=== PATIENT | female | born 1955 | race Caucasian/White ===

== ENCOUNTER 2018-02-03 06:34 | Day surgery (SDC) | payer OTHER ==
[~2018-02-03] VITALS: Ht 152.4 cm; Wt 62.0 kg
[~2018-02-03 06:34] MED LIST: EPIP0.3I IM; Z.0.NO CURRENT MEDS
[2018-02-03] MEDS ORDERED: TRAM50TA PO (07:04)
[2018-02-03] MEDS ORDERED: LORA-392 PO (07:04)
[2018-02-03] MEDS ORDERED: SODIUM CHLORIDE 2 ML FLUSH PRN IV FLUSH (07:30)
[2018-02-03] MEDS ORDERED: DIATRIZOATE MEGLUM/DIATRIZOATE SOD 9 ML CUP PO ONE (07:30)
[2018-02-03] MEDS ORDERED: SODIUM CHLOR 0.9% 1000 ML IV SCH (07:30)
[2018-02-03 07:50] VITALS: BP 138/91; PULSE 85; RESP 18; TEMP 97.3; O2SAT 98
[2018-02-03] MEDS ORDERED: ONDANSETRON HCL 4 MG/2 ML VIAL ONE (09:00)
[2018-02-03] MEDS ORDERED: SODIUM CHLORIDE 2 ML FLUSH BID IV FLUSH SCH (09:00)
[2018-02-03] MEDS ORDERED: fentaNYL CITRATE 250 MCG/5 ML AMP ONE (09:55)
[2018-02-03] MEDS ORDERED: LORazepam 2 MG/ML VIAL ONE (09:55)
[2018-02-03 10:30] VITALS: BP 107/72; PULSE 81; RESP 20; TEMP 98.3; O2SAT 98
[2018-02-03 10:45] VITALS: BP 105/73; PULSE 75; RESP 20; O2SAT 97
[2018-02-03] MEDS ORDERED: LIDOCAINE HCL 1% 10 ML VIAL OTHER ONE (11:07)
--- NOTE | 2018-02-03 11:09 | RADRPT ---
EXAM DATE/TIME: 02/03/2018 10:04 [facility] COMPARISON: No previous studies available for comparison. INDICATIONS : Right ovarian mass. SEDATION TIME: 30 minutes BIOPSY SITE: Right MEDICATION(S): 1.) 100 mcg fentanyl (Sublimaze) IV 2.) 1 mg lorazepam (Ativan) IV DEVICE(S): 1.) 20 gauge Temno core biopsy needle MEDICAL HISTORY : None. SURGICAL HISTORY : Hysterectomy. ENCOUNTER: Initial ACUITY: 1 day PAIN SCORE: 0/10 LOCATION: Right ovarian mass A total of one core specimen(s) were obtained and sent to the laboratory for pathologic evaluation. PROCEDURE: 1. CT guided ovary biopsy. 2. Conscious sedation with continuous EKG and oximetry monitoring. 3. EKG and oximetry remained stable throughout the procedure. Prior to the procedure informed consent was obtained. Any appropriate prior imaging studies were rev iewed. Using automated exposure control and adjustment of the mA and/or kV according to patient size, radiat ion dose was kept as low as reasonably achievable to obtain optimal diagnostic quality images. DICOM format image data is available electronically for review and comparison. The site was prepped in a sterile fashion. Full sterile technique was used, including cap, mask, radha rile gloves and gown and a large sterile sheet. Hand hygiene and 2% chlorhexidine and/or betadine/al cohol prep was utilized per protocol for cutaneous antisepsis. The skin and subcutaneous tissues wer e infiltrated with local anesthetic solution. With CT guidance the previously identified target was localized. Biopsy was performed using the presc ribed needle as above. Adequate hemostasis was obtained with compression at the puncture site. Follow-up CT scan reveals no hemorrhage. The patient tolerated the procedure well and there were no complications. The patient was returned to the Radiology Outpatient Unit in stable condition. CONCLUSION: Successful CT guided core biopsy of right ovarian mass. Yeison Lui MD on February 03, 2018 at 10:49 Board Certified Radiologist. This report was verified electronically.
[2018-02-03 11:15] VITALS: BP 96/71; PULSE 69; RESP 20; O2SAT 97
[2018-02-03 11:45] VITALS: BP 94/68; PULSE 66; RESP 20; O2SAT 98
[2018-02-03 12:15] VITALS: BP 114/72; PULSE 84; RESP 20; O2SAT 95
== END 2018-02-03 12:30 | disposition home or self-care (01) ==
LOC: HRAD 06:34 → HRIP 06:42 → HRAD 12:30
PROVIDERS: ATTEND Internal Medicine
DX: N83.9 Noninflammatory disorder of ovary, fallopian tube and broad ligament, unspecified (principal)
CPT/HCPCS: 49180; 77012; 88305; 88341; 88342; 99152; 99153; J2060; J2405; J3010; J7030; Q9963

== ENCOUNTER 2018-02-10 09:36 | Day surgery (SDC) | payer OTHER ==
[~2018-02-10] VITALS: Ht 152.4 cm; Wt 62.7 kg
[~2018-02-10 09:36] MED LIST changes: -EPIP0.3I IM; +LORA-392 PO; +TRAM50TA PO; -Z.0.NO CURRENT MEDS
[2018-02-10] MEDS ORDERED: LIDOCAINE HCL 1% 10 ML VIAL OTHER ONE (09:37)
[2018-02-10 09:49] VITALS: BP 125/82; PULSE 87; RESP 20; TEMP 97.9; O2SAT 99
[2018-02-10] MEDS ORDERED: fentaNYL CITRATE 250 MCG/5 ML AMP ONE (10:26)
[2018-02-10] MEDS ORDERED: MIDAZOLAM HCL 5 MG/5 ML VIAL ONE (10:26)
[2018-02-10] MEDS ORDERED: SODIUM CHLOR 0.9% 1000 ML IV SCH (11:00)
--- NOTE | 2018-02-10 12:45 | PD.RAD ---
Post CT Procedure Prog Note Pre Procedure Diagnosis: (1) Ovarian mass, right Post Procedure Diagnosis: (1) Ovarian mass, right Procedure Date: February 10, 2018 Supervising Radiologist: Leroy Cristobal Estimated blood loss: minimal. Anesthesia: Conscious Sedation Plan of Activity Patient to Unit: [facility] Patient Condition: Good See PACS Report for procedural detail/treatment Biopsy Imaging Guidance: CT Side: Right Biopsy Procedure: Abdominal Mass, Pelvic Mass Site: 1. right retroperitoneal soft tissue mass biopsy 2. right ovarian/adnexal mass aspiration and biopsy Specimen: Core Biopsy, Fluid Fluid Description: Clear, Yellow Additional Detail: 2 separate biopsies performed. see dictated report for further details. Plan to [facility] for monitoring then discharge in 2 hours if criteria met. Leroy Cristobal MD February 10, 2018 12:45
[2018-02-10 12:55] VITALS: BP 118/78; PULSE 77; RESP 16; TEMP 98.3; O2SAT 96
[2018-02-10 13:15] VITALS: BP 130/74; PULSE 87; RESP 20; O2SAT 96
[2018-02-10 13:30] VITALS: BP 101/63; PULSE 74; RESP 20; O2SAT 95
[2018-02-10 14:00] VITALS: BP 107/73; PULSE 83; RESP 20; O2SAT 96
--- NOTE | 2018-02-10 14:19 | RADRPT ---
EXAM DATE/TIME: 02/10/2018 11:33 [facility] COMPARISON: CT NEEDLE BIOPSY PELVIC, February 10, 2018, 11:46. CT NEEDLE BIOPSY PELVIC, February 03, 2018, 10:04. INDICATIONS : Pelvic mass, intraperitoneal implants. SEDATION TIME: 60 minutes BIOPSY SITE: Right lower quadrant abdomen MEDICATION(S): 1.) 3 mg midazolam (Versed) IV 2.) 150 mcg fentanyl (Sublimaze) IV DEVICE(S): 1.) 18 gauge Temno core biopsy needle 2.) 17 gauge Apple blunt needle MEDICAL HISTORY : pelvic mass SURGICAL HISTORY : Hysterectomy. lt oophorectomy ENCOUNTER: Initial ACUITY: 1 day PAIN SCORE: 0/10 LOCATION: Right lower quadrant A total of five core specimen(s) were obtained and sent to the laboratory for pathologic evaluation. PROCEDURE: 1. CT guided right lower quadrant biopsy. 2. Conscious sedation with continuous EKG and oximetry monitoring. 3. EKG and oximetry remained stable throughout the procedure. Prior to the procedure informed consent was obtained. The only examination available for review as th e prior CT performed during biopsy. After discussion with Dr. Fleming, it is reported that there may b e additional peritoneal nodules which could be amenable to percutaneous biopsy. Therefore, we image t he entire abdomen and pelvis prior to localization. The noncontrast CT of the entire abdomen and pelv is demonstrates the following significant findings: There is a solid and cystic appearing right adnexal mass measuring 7.3 x 5.8 cm. There is a loculated appearing fluid in the inferior pelvis in the posterior cul-de-sac and left adnexa with associated m ild peritoneal thickening and possible soft tissue density. A peritoneal nodule is present in the lef t lower quadrant directly adjacent to the proximal sigmoid colon measuring 11 mm. The right adnexal p mario masses abuts the sigmoid colon and also abuts distal small bowel loops. The mass causes obstruc tion of the right kidney with severe right hydronephrosis and hydroureter. There is a retroperitoneal soft tissue nodule posterior to the ascending colon measuring 1.9 x 1.1 cm. Simple cyst is present i n the left mid kidney measuring 2.6 cm. No liver lesion is identified and no nodules are seen at the lung bases. There is an enlarged aortocaval lymph node in the inferior abdomen measuring 1 x 1.1 cm. Using automated exposure control and adjustment of the mA and/or kV according to patient size, radiat ion dose was kept as low as reasonably achievable to obtain optimal diagnostic quality images. DICOM format image data is available electronically for review and comparison. Given the above findings, I decided to proceed with biopsy of the retroperitoneal soft tissue nodule in the right abdomen as well as re biopsy of the solid and cystic right adnexal mass. The 11 mm perit ramsey nodule adjacent to the sigmoid colon is not amenable to a safe biopsy. Full sterile technique was used, including cap, mask, sterile gloves and gown and a large sterile sheet. Hand hygiene and 2 % chlorhexidine and/or betadine/alcohol prep was utilized per protocol for cutaneous antisepsis. The skin and subcutaneous tissues were infiltrated with local anesthetic solution at both locations. With CT guidance the retroperitoneal nodule was localized first. Biopsy was performed using the presc ribed needle as above. Adequate hemostasis was obtained with compression at the puncture site. Follow-up CT scan reveals no hemorrhage or acute abnormality. The patient tolerated the procedure well and there were no complications. The patient was returned to the Radiology Outpatient Unit in stable condition. CONCLUSION: 1. Full description of the abdomen and pelvis findings are described above. As described above, I de cided to perform biopsy of a retroperitoneal soft tissue nodule in the right midabdomen as well as re peat biopsy of the right adnexal mass. 2. Biopsy of the retroperitoneal mass and adnexal mass were uncomplicated. 3. The right adnexal mass is causing obstruction of the right kidney with severe right hydronephrosis and proximal hydroureter. Leroy Cristobal MD on February 10, 2018 at 14:08 Board Certified Radiologist. This report was verified electronically.
--- NOTE | 2018-02-10 14:21 | RADRPT ---
EXAM DATE/TIME: 02/10/2018 11:46 [facility] COMPARISON: CT NEEDLE BIOPSY SOFT TISSUE, February 10, 2018, 11:33. CT NEEDLE BIOPSY PELVIC, February 03, 2018, 10:04. INDICATIONS : Pelvic mass, intraperitoneal implants. SEDATION TIME: 60 minutes BIOPSY SITE: pelvis MEDICATION(S): 1.) 3 mg midazolam (Versed) IV 2.) 150 mcg fentanyl (Sublimaze) IV DEVICE(S): 1.) 18 gauge Temno core biopsy needle 2.) 17 gauge Apple blunt needle MEDICAL HISTORY : pelvic mass SURGICAL HISTORY : Hysterectomy. left oophorectomy ENCOUNTER: Initial ACUITY: 1 day PAIN SCORE: 0/10 LOCATION: pelvis A total of five core specimen(s) were obtained and sent to the laboratory for pathologic evaluation. PROCEDURE: 1. CT guided pelvic biopsy. 2. Conscious sedation with continuous EKG and oximetry monitoring. 3. EKG and oximetry remained stable throughout the procedure. Prior to the procedure informed consent was obtained. The patient's abdomen and pelvis CT was reviewe d prior to proceeding. For full description of the abdomen CT findings please refer to the other biop sy report performed today. Using automated exposure control and adjustment of the mA and/or kV according to patient size, radiat ion dose was kept as low as reasonably achievable to obtain optimal diagnostic quality images. DICOM format image data is available electronically for review and comparison. The site was prepped in a sterile fashion. Full sterile technique was used, including cap, mask, radha rile gloves and gown and a large sterile sheet. Hand hygiene and 2% chlorhexidine and/or betadine/al cohol prep was utilized per protocol for cutaneous antisepsis. The skin and subcutaneous tissues wer e infiltrated with local anesthetic solution. With CT guidance the right adnexal solid and cystic mass was localized. Prior to solid tissue biopsy, aspiration of 25 cc of clear yellow fluid was aspirated from the solid and cystic lesion. Next, biop sy was performed using an 18 gauge needle and 5 samples were obtained. Adequate hemostasis was obtai luke with compression at the puncture site. Follow-up CT scan reveals no hemorrhage or acute abnormality. The patient tolerated the procedure well and there were no complications. The patient was returned to the Radiology Outpatient Unit in stable condition. CONCLUSION: 1. Uncomplicated CT-guided biopsy and aspiration of the right pelvis/adnexal mass. 25 cc of clear yel low fluid was aspirated and sent for cytology. Additionally, solid tissue was obtained. 2. Dictated separately is description of the right retroperitoneal soft tissue nodule biopsy. Leroy Cristobal MD on February 10, 2018 at 14:17 Board Certified Radiologist. This report was verified electronically.
[2018-02-10 14:30] VITALS: BP 110/68; PULSE 85; RESP 20; O2SAT 96
== END 2018-02-10 15:00 | disposition home or self-care (01) ==
LOC: HRAD 09:36 → HRIP 09:39 → HRAD 15:00
PROVIDERS: ATTEND Obstetrics & Gynecology Gynecologic Oncology
DX: C48.1 Malignant neoplasm of specified parts of peritoneum (principal); C56.1 Malignant neoplasm of right ovary
CPT/HCPCS: 20206; 49180; 77012; 88173; 88305; 88307; 88341; 88342; 99152; 99153; J2250; J3010

== ENCOUNTER 2018-02-21 06:10 | Day surgery (SDC) | payer OTHER ==
[~2018-02-21] VITALS: Ht 152.4 cm; Wt 62.3 kg
[2018-02-21] MEDS ORDERED: ZOFR8TAB PO (06:48)
[2018-02-21] MEDS ORDERED: MULTTAB67 PO (06:48)
[2018-02-21 06:52] VITALS: BP 125/79; PULSE 84; RESP 20; TEMP 98.4; O2SAT 97
[2018-02-21] MEDS ORDERED: VANCOMYCIN 1000 MG/NS 250 ML - implanted port/tunneled catheter IV SCH ×2 (07:30)
[2018-02-21] MEDS ORDERED: SODIUM CHLORIDE 0.9% 1000 ML IV SCH (07:30)
[2018-02-21] MEDS ORDERED: CHLORHEXIDINE GLUCONATE 2 % 1 PACK (2 CLOTHS) TOPICAL SCH (07:30)
[2018-02-21] MEDS ORDERED: ceFAZolin 2 GM PREMIX 50 ML - implanted port/tunneled catheter insertion IV SCH (07:30)
[2018-02-21] MEDS ORDERED: POVIDONE IODINE 5% (ANTISEPSIS KIT) 4 APPLICATIONS EACH NARE SCH (07:30)
[2018-02-21] MEDS ORDERED: fentaNYL CITRATE 250 MCG/5 ML AMP ONE (07:37)
[2018-02-21] MEDS ORDERED: MIDAZOLAM HCL 5 MG/5 ML VIAL ONE (07:38)
[2018-02-21] MEDS ORDERED: LIDOCAINE 1%/EPINEPHrine 1:100,000 SOLN 20 ML VIAL ONE (08:08)
[2018-02-21] MEDS ORDERED: MIDAZOLAM HCL 2 MG/2 ML VIAL ONE (08:37)
[2018-02-21 09:10] VITALS: BP 112/68; PULSE 103; RESP 16; TEMP 98.2; O2SAT 93
[2018-02-21] MEDS ORDERED: SODIUM CHLORIDE 0.9% FLUSH 10 ML FLUSH IVF PRN (09:15)
--- NOTE | 2018-02-21 09:17 | PD.RAD ---
Post Procedure Progress Note Pre Procedure Diagnosis: (1) Ovarian mass, right Post Procedure Diagnosis: (1) Ovarian mass, right Procedure Date: February 21, 2018 Supervising Radiologist: Bola Daniels Proceduralist/Assist: Christina Darden, RT(R)(), Ida Loaiza RT(R) Anesthesia: Local, Analgesia, Conscious Sedation Plan of Activity Patient to Unit: [facility] Patient Condition: Good See PACS Report for procedural detail/treatment Central Venous Access Device Procedure 1 Right Internal Jugular Infusaport Placement single lumen Portuguese: 8 Bola Daniels MD February 21, 2018 09:17
[2018-02-21 09:25] VITALS: BP 108/67; PULSE 83; RESP 18; O2SAT 93
[2018-02-21 09:55] VITALS: BP 101/65; PULSE 81; RESP 18; O2SAT 98
[2018-02-21 10:25] VITALS: BP 102/65; PULSE 77; RESP 18; O2SAT 98
--- NOTE | 2018-02-21 10:53 | RADRPT ---
EXAM DATE/TIME: 02/21/2018 08:48 [facility] COMPARISON: No previous studies available for comparison. INDICATIONS : Patient with a history of a pelvic mass, needs chemotherapy. MEDICAL HISTORY : Anxiety GERD Osteoporosis Uterine Fibroids SURGICAL HISTORY : Cervical polyps Carpal tunnel release Breast implants Hysterectomy ENCOUNTER: Initial ACUITY: 2 weeks PAIN SCORE: 0/10 FLUORO TIME: 2.02 minutes IMAGE SERIES: 1 SEDATION TIME: 60 minutes ACCESS: Right internal jugular vein SEDATION: 1.) 6 mg midazolam (Versed) IV 2.) 250 mcg fentanyl (Sublimaze) IV Prophylactic antibiotics were administered with appropriate pre-procedure timing. Vancomycin within 2 hours of procedure, Ancef (or alternative) within 1 hour of procedure. DEVICE: 1. 8 Mongolian single lumen Power port PROCEDURE : 1. Continuous pulse oximetry and EKG monitoring. 2. Intravenous conscious sedation. 3. Ultrasound guidance for venous access. 4. Fluoroscopic guided implantable central venous port placement. The patient was placed supine. The neck was prepped in sterile fashion. Full sterile technique was u sed, including cap, mask, sterile gloves and gown, and a large sterile sheet. Hand hygiene and 2% ch lorhexidine Betadine was utilized per protocol for cutaneous antisepsis with appropriate dry time for site. Sterile gel and sterile probe cover were utilized for ultrasound guidance. The skin and sub cutaneous tissues were infiltrated with local anesthetic solution. Under direct ultrasound guidance, central venous access was accomplished in the targeted vessel. The ultrasound images depicting access guidance were stored and saved to PACS for permanent record. A s ubcutaneous pocket was created using blunt dissection. The port was introduced to the pocket. The c atheter tubing was fed through a subcutaneous tunnel to the venotomy site. The catheter tubing was c ut to a suitable length and then was introduced through a valved Peel-Away sheath and positioned with catheter tubing tip at the cavo-atrial junction level. The pocket incision was closed with subcutic ular Vicryl suture. Steri-Strips were applied. The port was flushed and locked with heparin solutio n per protocol. Sterile dressing was applied to the site. The patient tolerated the procedure well. Conscious sedation was performed with the prescribed dosages and duration as above in the presence of an independent trained radiology nurse to assist in the monitoring of the patient. EKG and oximetry remained stable throughout the procedure. The patient tolerated the procedure well and there were no complications. The patient was sent to post anesthesia recovery in stable condition. CONCLUSION: Uncomplicated ultrasound and fluoroscopic guided implanted central venous port catheter placement as described in detail above. An 8 Mongolian Power port was placed. Bola Daniels MD on February 21, 2018 at 10:50 Board Certified Radiologist. This report was verified electronically.
[2018-02-21 11:25] VITALS: BP 107/78; PULSE 100; RESP 18; O2SAT 98
== END 2018-02-21 11:20 | disposition home or self-care (01) ==
LOC: HROP 06:10 → HRIP 06:11 → HROP 11:20
PROVIDERS: ATTEND Obstetrics & Gynecology Gynecologic Oncology
DX: C56.1 Malignant neoplasm of right ovary (principal)
CPT/HCPCS: 36561; 76937; 77001; 99152; 99153; C1788; J0690; J1642; J2250; J3010; J3370; J7030; J7050

== ENCOUNTER 2018-06-05 05:51 | Inpatient (IN) ==
[2018-06-05] MEDS ORDERED: Heparin - SQ 10,000 UNITS/ML Vial ONE (07:12)
[2018-06-05] MEDS ORDERED: Heparin - SQ 10,000 UNITS/ML Vial SQ SCH (07:15)
[2018-06-05] MEDS ORDERED: Chlorhexidine Gluconate 2% 1 Pack (2 Cloths) TOPICAL SCH (07:15)
[2018-06-05] MEDS ORDERED: Metoprolol Tartrate 25 MG Tablet PO SCH (07:15)
[2018-06-05] MEDS: Famotidine PF Inj 20 MG/2 ML Vial ONE ×2 (07:21→14:44)
[2018-06-05] MEDS ORDERED: Sugammadex Inj 200 MG/2 ML Vial IV.PUSH ONE (07:44)
[2018-06-05] MEDS ORDERED: Sodium Chlor 0.9% Inj 500 ML IV.SIG SCH (08:00)
[2018-06-05] MEDS ORDERED: Lidocaine 1%/Epinephrine 1:100,000 Inj 50 ML Vial ONE (09:35)
[2018-06-05] MEDS ORDERED: Lidocaine PF 1% Inj 5 ML Syringe INFILTRATN ONE (12:00)
[2018-06-05] MEDS ORDERED: Ketorolac Inj 30 MG/ML (IVP) Vial IV.PUSH ONE (12:00)
[2018-06-05] MEDS ORDERED: Phenylephrine/NS 1000 MCG/10ML Syringe IV.PUSH ONE (12:00)
[2018-06-05] MEDS ORDERED: LORazepam 0.5 MG Tablet PO PRN (12:22)
[2018-06-05] MEDS ORDERED: Morphine Inj 4 MG/ML Vial ONE (12:42)
[2018-06-05] MEDS ORDERED: fentaNYL Citrate Inj 100 MCG/2 ML Ampul ONE (12:42)
[2018-06-05] MEDS ORDERED: KCL 20 mEq/D5W/NaCl 0.45% Inj 1,000 ML ONE (13:02)
[2018-06-05] MEDS: KCL 20 mEq/D5W/NaCl 0.45% Inj 1,000 ML IV.CONT SCH ×2 (13:18→20:32)
[2018-06-05] MEDS ORDERED: *morphine SULFATE 4 MG/ML PERIprocedure ONLY ONE ×2 (13:36→13:45)
[2018-06-05] MEDS: Ketorolac Inj 30 MG/ML (IVP) Vial IV.PUSH SCH (18:03)
[2018-06-06] MEDS: Ketorolac Inj 30 MG/ML (IVP) Vial IV.PUSH SCH ×3 (00:36→12:05)
[2018-06-06] MEDS: KCL 20 mEq/D5W/NaCl 0.45% Inj 1,000 ML IV.CONT SCH (04:30)
--- NOTE | 2018-06-06 07:10 | MD ---
cc: Patricia Fleming MD, [facility] DATE OF DISCHARGE: 06/06/2018 PROCEDURE: 06/05/2018, robotic-assisted laparoscopic cytoreduction of ovarian cancer with bilateral salpingo-oophorectomy, resection of pelvic tumor, omentectomy, bilateral ureterolysis, tumor resection, extensive lysis of adhesions. HOSPITAL COURSE: She did well in her early postoperative period, remained hemodynamically stable, tolerating oral intake. Oh[place] catheter removed pending voiding. Ins and outs 2680/2700. Labs are pending. PHYSICAL EXAMINATION: VITAL SIGNS: Afebrile, pulse 73, respirations 16, blood pressure 117/69, O2 saturations greater than or equal to 97%. GENERAL: Somnolent, but awake, minimally anxious. Good pain control. LUNGS: Clear. Mild basilar rales. CARDIOVASCULAR: Regular rate and rhythm. ABDOMEN: Soft. Incisions clean and dry. ASSESSMENT: Postoperative day number 1, doing well in the early postoperative period. The preliminary findings and steps taken at surgery are discussed. Activities restrictions reviewed. Questions were asked and answered. She expressed good understanding and agreed. PLAN: I anticipate she will meet criteria for discharge to home. She will resume prior medications. She will have a prescription for Percocet and our office phone number is again provided to her to contact us should she have any questions or problems and to ensure she has a followup scheduled in 2 weeks. MD LINDSEY Dowell/elle , 06:35 AM , 06:42 AM
[2018-06-06 11:37] LABS: Baso % (Auto) 0.4 % (0.0-2.0); Eos # (Auto) 0.1 th/mm3 (0.0-0.4); Eos % (Auto) 0.8 % (0.0-4.0); Hematocrit 31.4 % (35.0-46.0); Hemoglobin 10.4 gm/dL (11.6-15.3); Lymph # (Auto) 1.5 th/mm3 (1.0-4.8); Lymph % (Auto) 18.8 % (9.0-44.0); Mean Corpuscular Hemoglobin 32.1 pg (27.0-34.0); Mean Corpuscular Volume 97.2 fL (80.0-100.0); Mean Platelet Volume 8.4 fL (7.0-11.0); Mono # (Auto) 0.7 th/mm3 (0.0-0.9); Mono % (Auto) 8.5 % (0.0-8.0); Neut # (Auto) 5.6 th/mm3 (1.8-7.7); Neut % (Auto) 71.5 % (16.0-70.0); Platelet Count 155 th/mm3 (150-450); Red Blood Count 3.23 mil/mm3 (4.00-5.30); Red Cell Distribution Width 17.9 % (11.6-17.2); White Blood Count 7.8 th/mm3 (4.0-11.0)
[2018-06-06 11:54] VITALS: BP 115/68; PULSE 77; RESP 20; TEMP 98.5; O2SAT 98
[2018-06-06 11:59] LABS: Carbon Dioxide 26.2 meq/L (21.0-32.0); Potassium 3.6 meq/L (3.5-5.1)
--- NOTE | 2018-06-14 09:15 | MP ---
cc: Patricia Fleming MD, Staci DATE OF OPERATION: 06/05/2018 PREOPERATIVE DIAGNOSES: 1. Ovarian cancer, stage IIIC, bilaterally. 2. Status post neoadjuvant Taxol/carboplatin chemotherapy. POSTOPERATIVE DIAGNOSES: 1. Ovarian cancer, stage IIIC, bilaterally. 2. Status post neoadjuvant Taxol/carboplatin chemotherapy. 3. Extensive pelvic adhesions. PROCEDURES PERFORMED: Robotic-assisted laparoscopic aggressive cytoreduction of ovarian cancer with en bloc omentectomy, bilateral salpingo-oophorectomy, resection of pelvic and intraperitoneal tumor, bilateral ureterolysis, extensive lysis of adhesions. SURGEON: Patricia Fleming MD. 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 ANESTHESIA: General endotracheal anesthesia. ESTIMATED BLOOD LOSS: 300 mL. INTRAVENOUS FLUIDS: 1100 mL. URINE OUTPUT: 150 mL. HISTORY: This is a 63-year-old female with intraperitoneal carcinomatosis, ascites, elevated CA-125, biopsy-proven papillary serous carcinoma with findings consistent with stage IIIC bilateral disease. She was treated with neoadjuvant Taxol and carboplatin chemotherapy with resolution of the ascites, and significant clinical and biochemical response to treatment. Physical exam showed objective improvement in the disease status, although there was clearly still palpable disease present. She was counseled regarding the potential value of surgical intervention. She was seen again in the preoperative holding area with her family, and findings were again reviewed. Plan of care was discussed. Questions were asked and answered. She expressed good understanding, and was in favor of moving forward with surgical management. FINDINGS: Upon entry into the peritoneal cavity, there was notable response to chemotherapy in the abdomen. There was minimal to absent disease at most. There were small miliary, small implants infrequent, no larger than approximately 2 mm showing response to chemotherapy. Along the transverse colon, the proximal omentum grossly appeared free of disease. In the pelvis; however, distal omentum was fixed in the pelvis, where it was obscuring visible access to the pelvic structures. Eventually, found that the distal omentum had significant tumor still present and it was fixed in the pelvis, and was part of the pelvic tumor arising from the ovaries bilaterally. There were peritoneal nodules in the mesentery, and on the small and large bowel, and there were extensive adhesions with fixation from tumor throughout the pelvis. At the conclusion of the case, the vast majority of tumor had been satisfactorily reduced. Remaining were only implants, 3 mm or less on the bowel wall, and a thin, small plaque of tumor on a looped small bowel, and a thin, small plaque of tumor on the rectum that were not thought safely or necessarily amenable to surgical resection. There was no area to suggest impending obstruction, and it was felt that chemotherapy would be best to address the small volume of residual disease. STATEMENT OF COMPLEXITY/MODIFIER: The complexity of this case was significantly increased due to the extensive pelvic adhesions, all directly or indirectly related to the tumor. It was estimated that at least 90 minutes or more of the surgical time was spent lysing adhesions, trying to reestablish normal anatomy, gain safe access to the pelvis to accomplish surgical objectives. Modifier should be applied accordingly. DESCRIPTION OF PROCEDURE: She was taken to the operating room and placed in dorsal lithotomy position, after general endotracheal anesthesia was administered. A timeout was undertaken. She was identified by site recognition, hospital ID bracelet, and the proposed procedure was reviewed and confirmed. She was carefully positioned in padded Pj stirrups. Her arms were padded and secured to the sides. She was further secured to the operating table with egg crate padding and tape in a crossover shoulder fashion. All sites noted to be properly aligned with no malalignment or pressure points. She was prepped in sterile fashion and draped below the waist, placed in lithotomy position. Ohara catheter placed in the bladder. The uterus and cervix were surgically absent, consistent with her history. Change with sterile gloves was undertaken. We completed draping in anticipation of laparoscopy, confirmed that an orogastric tube was in the stomach on suction. With manual elevation of the abdominal wall and direct laparoscopic visualization, a 5 mm cannula was placed in the left upper quadrant, and safe intraperitoneal entry was confirmed. Carbon dioxide gas was insufflated into the peritoneal cavity. Then, 8 mm cannulas were placed in the right upper quadrant and left lateral quadrant, and the 12 mm cannula was placed in the midline above the umbilicus. The anatomy was surveyed with findings as described above. Peritoneal washings were obtained for cytology. She was placed in Trendelenburg position. The pelvic anatomy was evaluated to the extent possible with the omentum and tumor overlying and fixing the pelvic structures. Visualization was difficult. The small bowel was folded back on its mesenteric root to the extent possible below the omentum, and 3 Ray-John sponges were placed in the peritoneal cavity. Robotic system brought in and attached in the usual fashion. Monopolar scissors, fenestrated bipolar forceps, and ProGrasp manipulators were placed in arms #1, #2, and #3 respectively, and I took my place at the surgeon's console. Omentectomy was performed by detaching the skin throughout the colic omentum from the transverse colon. Nonvascular attachments were taken down with sharp dissection. Vascular attachments were isolated, cauterized with bipolar cautery, and transected starting near the hepatic flexure, and continuing dissection along the border of the transverse colon, and continuing toward the splenic flexure until the majority of the infracolic omentum had been detached. The omentum could now be elevated, and dissection was carried out to free adhesions to further free the omentum from the attachments to underlying structures. Neither of the ovaries were yet visible, as the loops of small bowel were fixed in the pelvis. Retroperitoneal dissection was initiated on the right side. The residual round ligament was identified, isolated, cauterized, and transected. Dissection was carried out above the pelvic brim, which was necessary to identify the ureter, and then loops of small bowel and colon were freed from the medial aspect of the mass. Sharp dissection was used to help free the ureter from along the posterolateral aspect of the mass, enough until the infundibulopelvic ligament could be isolated, and the intervening peritoneum was opened. The infundibulopelvic ligament was further isolated, cauterized, and transected. Additional ureterolysis was carried out along the course in the pelvis to free the ureter from its attachment to the mass, as the adhesions were freed, slowly elevating the mass, and freeing it from the surrounding structures with the mass being tumor that had replaced the right tube and ovary. After the ureter was freed along its course, further dissection allowed isolation of the residual right uteroovarian ligament, which was cauterized and transected, thereby freeing the right-sided tumor. This was dissected free from the omental tumor. It was placed in the right pericolic gutter for later retrieval. Attention was directed toward dissection on the left side. Left retroperitoneal dissection was carried out. Extensive lysis of adhesions was required to mobilize the colon from its fixation to the left pelvic sidewall, and retroperitoneal dissection was carried to the pelvic brim to identify the ureter. The ureter was freed along its course in the proximal pelvis until the infundibulopelvic ligament could be isolated. The intervening peritoneum was opened, and the infundibulopelvic ligament was further isolated, cauterized, and transected. The rectosigmoid colon was freed from the mass with sharp dissection and the mass was freed from its attachments through the vaginal cuff and bladder with sharp dissection, which gave some mobility. With further mobility, it could be elevated, and the ureter was further dissected free from the posterolateral attachments to the tumor with sharp dissection, freeing the ureter along its course in the pelvis. Circumferential dissection of the tumor allowed it to be further elevated until the left residual round ligament, and left residual utero-ovarian ligament was isolated, cauterized, and transected, freeing the left-sided tumor attached with the omental tumor. Now, the left ovarian tumor was sharply dissected, from the omental tumor to help facilitate subsequent specimen delivery. The specimens were placed in the right pericolic gutter for later retrieval. Inspection and running of the bowel revealed other implants along the mesentery, which were sharply removed. This was carried out until all significant tumor had been resected. Any remaining implants or small thin plaques were right on the bowel wall itself, and it was felt that morbidity of multifocal small-bowel obstruction exceeded any potential benefit, as it was very small volume of tumor, and no evidence of impending obstruction or other compromise. The pelvis and abdomen were thoroughly irrigated. Small bleeders were made hemostatic with bipolar cautery. Hemostatic Surgicel was placed in the dissection bed against the pelvic sidewalls, and cul-de-sac posteriorly and laterally, and it was felt that all reasonable surgical objectives had been completed. The integrity of the bladder and bowel was confirmed by careful visual inspection and assessment. The robotic instruments were removed. The robotic system was disengaged from the operative field. I reentered the bedside under sterile condition. The 12 mm fascial defect was extended a bit with sharp dissection to facilitate specimen delivery. Each of the 3 Ray-John sponges that were placed, were now removed individually. They were inspected and noted to be removed in their entirety. A 15 cm EndoCatch bag and cannula were introduced. The omentum and omental tumor were placed in the bag, brought to the abdominal wall, and the countertraction using ring forceps and sharp dissection. Specimen was delivered. Another 15 cm EndoCatch bag was used to capture the right and left ovarian tumors and the peritoneal tumor implants that were resected. They were all placed in the specimen bag, brought to the abdominal wall, and removed. Visual inspection confirmed that all specimens were removed. All sites were satisfactorily hemostatic. There were no remaining foreign objects in the peritoneal cavity. Preliminary counts were correct, and attention was directed toward closing. The midline fascial defect was closed with interrupted 0 Vicryl sutures using a needle fascial closure apparatus. They were tied securely, were trimmed at the fascia, completely airtight, and hemostatic. The remaining cannulas were withdrawn. Carbon dioxide gas was removed from the peritoneal cavity. 3-0 Vicryl subcutaneous and 3-0 Vicryl subcuticular sutures were used to close these incisions. She was placed in lithotomy position. Pelvic exam confirmed there were no remaining foreign objects in the vagina. Preliminary and final counts were correct. She was returned to dorsal supine position, and was pending reversal of anesthesia, when I left the operating room to precede her to the postanesthesia care unit. MD LINDSEY Dowell/rh , 08:00 AM , 08:25 AM
== END 2018-06-06 16:35 | disposition home or self-care (01) ==
LOC: HSDI 05:51 → HCIN 14:20
PROVIDERS: ADMIT Obstetrics & Gynecology Gynecologic Oncology; ATTEND Obstetrics & Gynecology Gynecologic Oncology

== ENCOUNTER 2018-09-27 20:50 | Inpatient (IN) ==
[2018-09-28] MEDS ORDERED: Acetaminophen 325 MG Tablet PO PRN (02:31)
[2018-09-28] MEDS ORDERED: Bisacodyl 10 MG Supp RECTAL PRN (02:31)
--- NOTE | 2018-09-28 02:40 | P.HPIM ---
History of Present Illness Service: [facility] Primary Care Physician: Rhona Stewart Chief Complaint: abdominal pain History of Present Illness: 63 y/o female with a history of ovarian cancer presented to the ED with complaints of abdominal pain, nausea and vomiting for 2 days. She recently had a hysterectomy and is on chemotherapy, last chemo was 3 weeks ago. She currently sees Dr. Fleming. She states the pain is an intermittent, 7/10, cramping with nausea and vomiting, no radiation, worse with eating, better with rest. She denies any diarrhea. She states she did have a low grade temp of 100 at home. Denies any chest pain or sob. Review of Systems Review of Systems: all other systems reviewed are negative PMFSH History History Provided By: Patient Medical History Medical History Anxiety (Acute) Breast implant status (Acute) Carpal tunnel syndrome of right wrist (Acute) Fibroid, uterine (Acute) GERD (gastroesophageal reflux disease) (Acute) H/O pelvic mass (Acute) Osteoporosis (Acute) Surgical History Surgical History H/O: hysterectomy (Acute) Family History Family History Other No history of cancer Social History Social History Substance History: No History of Abuse Second Hand Smoke Exposure: No Smoking Status: Never smoker How Often Do You Have a Drink Containing Alcohol: Never Recent Travel in [facility] within the Last 8 Weeks: No Recent Out of Country Travel within the Last 8 Weeks: No Medications and Allergies Allergies Allergy/AdvReac Type Severity Reaction Status Date / Time fire ant Allergy Mild Anaphylaxis Verified 08/30/18 09:26 Home Medications Medication Instructions Recorded Confirmed Type ascorbic acid (vitamin C) [Vitamin 250 mg PO DAILY 06/05/18 08/30/18 History C] calcium carbonate [Calcium 500] 1,000 mg PO DAILY 06/05/18 08/30/18 History lorazepam [Ativan] 0.5 mg PO DAILY 06/05/18 08/30/18 History [id number] 1 tab PO DAILY 06/05/18 08/30/18 History [[employer]] sodium chloride 0.9 % 1,000 ml IV QWEEK 07/05/18 08/30/18 History Active Medications: Active Medications Acetaminophen (Tylenol) 650 mg PO Q4H PRN PRN Reason: Temp > 100.4 Al Hydroxide/Mg Hydroxide (Milk Of Magnesia Liq) 30 ml PO Q12H PRN PRN Reason: Mild Constipation Bisacodyl (Dulcolax Supp) 10 mg RECTAL DAILY PRN PRN Reason: SEVERE CONSITIPATION Sodium Chloride (Ns Inj) 1,000 mls @ 100 mls/hr IV.CONT .Q10H LUCHO Lactulose (Lactulose Liq) 30 ml PO DAILY PRN PRN Reason: SEVERE CONSITIPATION Ondansetron HCl (Zofran Inj) 4 mg IV.PUSH Q6H PRN PRN Reason: NAUSEA OR VOMITING Sennosides (Senokot) 17.2 mg PO Q12H PRN PRN Reason: Moderate Constipation Sodium Chloride (Ns Flush) 2 ml IV.FLUSH BID LUCHO Sodium Chloride (Ns Flush) 2 ml IV.FLUSH PRN PRN PRN Reason: FLUSH AFTER USING IV ACCESS Physical Exam Vital signs: Intake & Output 09/25/18 09/26/18 09/27/18 09/28/18 06:59 06:59 06:59 06:59 Weight 53.977 kg Narrative: GENERAL: well nourished patient laying in bed, no distress SKIN: Warm and dry. HEAD: Normocephalic. EYES: No scleral icterus. No injection or drainage. NECK: Supple, trachea midline. No JVD or lymphadenopathy. CARDIOVASCULAR: Regular rate and rhythm without murmurs, gallops, or rubs. RESPIRATORY: Breath sounds equal bilaterally. No accessory muscle use. GASTROINTESTINAL: Abdomen soft, epigastric and LLQ tenderness, nondistended. MUSCULOSKELETAL: No cyanosis, or edema. Caprini VTE Risk Assessment Caprini VTE Risk Assessment: Moderate/High Risk (score >= 2) Caprini Risk Assessment Model: Point Value = 1 Point Value = 2 Point Value = 3 Point Value = 5 Age 41-60 Minor surgery BMI > 25 kg/m2 Swollen legs Varicose veins or History of unexplained or recurrent spontaneous Oral contraceptives or hormone replacement Sepsis (< 1 month) Serious lung disease, including pneumonia (< 1 month) Abnormal pulmonary function Acute myocardial infarction Congestive heart failure (< 1 month) History of inflammatory bowel disease Medical patient at bed rest Age 61-74 Arthroscopic surgery Major open surgery (> 45 min) Laparoscopic surgery (> 45 min) Malignancy Confined to bed (> 72 hours) Immobilizing plaster cast Central venous access Age >= 75 History of VTE Family history of VTE Factor V Leiden Prothrombin [id number] Lupus anticoagulant Anticardiolipin antibodies Elevated serum homocysteine Heparin-induced thrombocytopenia Other congenital or acquired thrombophilia Stroke (< 1 month) Elective arthroplasty Hip, pelvis, or leg fracture Acute spinal cord injury (< 1 month) Prophylaxis Regimen: Total Risk Factor Score Risk Level Prophylaxis Regimen 0-1 Low Early ambulation 2 Moderate Order ONE of the following: *Sequential Compression Device (SCD) *Heparin 5000 units SQ BID 3-4 Higher Order ONE of the following medications: *Heparin 5000 units SQ TID *Enoxaparin/Lovenox 40 mg SQ daily (WT < 150 kg, CrCl > 30 mL/min) *Enoxaparin/Lovenox 30 mg SQ daily (WT < 150 kg, CrCl > 10-29 mL/min) *Enoxaparin/Lovenox 30 mg SQ BID (WT < 150 kg, CrCl > 30 mL/min) AND/OR *Sequential Compression Device (SCD) 5 or more Highest Order ONE of the following medications: *Heparin 5000 units SQ TID (Preferred with Epidurals) *Enoxaparin/Lovenox 40 mg SQ daily (WT < 150 kg, CrCl > 30 mL/min) *Enoxaparin/Lovenox 30 mg SQ daily (WT < 150 kg, CrCl > 10-29 mL/min) *Enoxaparin/Lovenox 30 mg SQ BID (WT < 150 kg, CrCl > 30 mL/min) AND *Sequential Compression Device (SCD) Assessment and Plan Plan 63 y/o female with a history of ovarian cancer presented to the ED with complaints of abdominal pain, nausea and vomiting for 2 days. Acute abdominal pain, Partial sbo vs ileitis vs abscess Abdominal CT reviewed and shows a possible partial sbo with fluid collection -Consult gen surgery for evaluation and recommendations -IVF for hydration -Antiemetics as needed -Flagly IV -NPO -Place NGT if patient has vomiting -Pain management with IV morphine Ovarian cancer, currently on chemo -Will consult [facility] oncology if needed DVT prophylaxis: SCDs H&P: Quality VTE Deep Vein Thrombosis/Pulmonary Embolism Present on Admission: No
[2018-09-28] MEDS ORDERED: Morphine Inj 4 MG/ML Vial IV.PUSH PRN (03:21)
[2018-09-28] MEDS: Sod Chloride 0.9% Inj 1,000 ML IV.CONT SCH ×2 (04:09→13:53)
[2018-09-28 07:22] LABS: Baso % (Auto) 0.1 % (0.0-2.0); Eos % (Auto) 0.2 % (0.0-4.0); Hematocrit 24.6 % (35.0-46.0); Hemoglobin 8.3 gm/dL (11.6-15.3); Lymph # (Auto) 1.2 th/mm3 (1.0-4.8); Lymph % (Auto) 21.7 % (9.0-44.0); Mean Corpuscular HGB Conc 33.6 % (32.0-36.0); Mean Corpuscular Hemoglobin 32.6 pg (27.0-34.0); Mean Platelet Volume 8.4 fL (7.0-11.0); Mono # (Auto) 0.6 th/mm3 (0.0-0.9); Neut # (Auto) 3.8 th/mm3 (1.8-7.7); Platelet Count 170 th/mm3 (150-450); Red Blood Count 2.54 mil/mm3 (4.00-5.30); Red Cell Distribution Width 20.6 % (11.6-17.2); White Blood Count 5.7 th/mm3 (4.0-11.0)
[2018-09-28 07:41] LABS: Anion Gap 9 meq/L (5-15); Blood Urea Nitrogen 11 mg/dL (7-18); Calcium 8.2 mg/dL (8.5-10.1); Carbon Dioxide 23.5 meq/L (21.0-32.0); Chloride 108 meq/L (98-107); Glomerular Filtration Rate Greater Than 89 mL/min (>89); Glucose,Random 94 mg/dL (74-106); Potassium 3.7 meq/L (3.5-5.1); Sodium 140 meq/L (136-145)
--- NOTE | 2018-09-28 13:39 | P.CONGS ---
[facility] Gen Surgery Consult Note Consult date: 09/28/18 Reason for consult: other (PSBO) Requesting physician: Nayla Patel Narrative: This is a 63 year old female with a past medical history of ovarian cancer treated by Dr. Fleming. The patient reports her last dose of chemotherapy was three weeks ago. She reports abdominal pain with associated nausea that began about three days ago. She has not had any emsis. No other family member is sick. A CT abdomen/pelvis was done on admission which shows possible thickening of the terminal lumen and a prominent amount of debris in the colon. Her WBC is normal. Her last BM was yesterday and it was normal. The patient and her state that she is scheduled for a biopsy with Dr. Fleming tomorrow. A General Surgery consultation has been requested. Review of Systems All other systems reviewed negative except as stated in [facility] PMF[facility] - History History Provided By: Patient - Medical History Medical History: Medical History (Last Reviewed 09/28/18 @ 13:38 by DOLORES Casillas) Anxiety Breast implant status Carpal tunnel syndrome of right wrist Fibroid, uterine GERD (gastroesophageal reflux disease) H/O pelvic mass Osteoporosis - Surgical History Surgical History: Surgical History (Last Reviewed 09/28/18 @ 13:38 by DOLORES Casillas) H/O: hysterectomy - Family History Family History: Family History (Last Reviewed 09/28/18 @ 03:17 by DOLORES Lopez) Other No history of cancer - Tobacco History Second Hand Smoke Exposure: No Smoking Status: Never smoker - Alcohol History How Often Do You Have a Drink Containing Alcohol: Never - Substance Use History Substance History: No History of Abuse - Travel History Recent Travel in the [place] Within the Last 8 Weeks: No Recent Travel Out of the Country Within the Last 8 Weeks: No Medications and Allergies Allergies Allergy/AdvReac Type Severity Reaction Status Date / Time fire ant Allergy Mild Anaphylaxis Verified 08/30/18 09:26 Home Medications Medication Instructions Recorded Confirmed Type ascorbic acid (vitamin C) [Vitamin 250 mg PO DAILY 06/05/18 08/30/18 History C] calcium carbonate [Calcium 500] 1,000 mg PO DAILY 06/05/18 08/30/18 History lorazepam [Ativan] 0.5 mg PO DAILY 06/05/18 08/30/18 History [id number] 1 tab PO DAILY 06/05/18 08/30/18 History [[employer]] sodium chloride 0.9 % 1,000 ml IV QWEEK 07/05/18 08/30/18 History Active Medications: Active Medications Acetaminophen (Tylenol) 650 mg PO Q4H PRN PRN Reason: Temp > 100.4 Al Hydroxide/Mg Hydroxide (Milk Of Magnesia Liq) 30 ml PO Q12H PRN PRN Reason: Mild Constipation Bisacodyl (Dulcolax Supp) 10 mg RECTAL DAILY PRN PRN Reason: SEVERE CONSITIPATION Sodium Chloride (Ns Inj) 1,000 mls @ 100 mls/hr IV.CONT .Q10H [facility] Last Admin: 09/28/18 04:09 Dose: 100 mls/hr Metronidazole/Sodium Chloride (Flagyl 500 Mg Inj) 100 mls @ 100 mls/hr IV.SIG Q6H [facility] Last Infusion: 09/28/18 07:19 Dose: Infused Lactulose (Lactulose Liq) 30 ml PO DAILY PRN PRN Reason: SEVERE CONSITIPATION Morphine Sulfate (Morphine Inj) 2 mg IV.PUSH Q3H PRN PRN Reason: pain 1 - 10 Ondansetron HCl (Zofran Inj) 4 mg IV.PUSH Q6H PRN PRN Reason: NAUSEA OR VOMITING Oxycodone/Acetaminophen (Percocet 5/325 Mg) 1 tab PO Q6H PRN PRN Reason: PAIN SCALE 4 TO 6 MODERATE Last Admin: 09/28/18 08:27 Dose: 1 tab Sennosides (Senokot) 17.2 mg PO Q12H PRN PRN Reason: Moderate Constipation Sodium Chloride (Ns Flush) 2 ml IV.FLUSH BID [facility] Sodium Chloride (Ns Flush) 2 ml IV.FLUSH PRN PRN PRN Reason: FLUSH AFTER USING IV ACCESS Exam Vital signs: Vital Signs 09/28/18 04:00 09/28/18 07:46 09/28/18 11:58 Temperature 99.3 F 98.8 F 99.0 F Pulse Rate 80 89 83 Respiratory Rate 16 16 16 Blood Pressure 108/55 L 124/67 105/53 L Pulse Oximetry 97 98 92 L Intake & Output 09/27/18 09/28/18 09/28/18 18:59 06:59 18:59 Intake Total 100 / 100 Balance 100 / 100 Weight 53.977 kg Intake: IV 100 / 100 Flagyl 500 MG Inj 100 ML @ 100 100 / 100 mls/hr IV.SIG Q6H [facility] Rx#: [id number] Other: Date of Last Bowel Movement 09/27/18 Weight On Admission 53.977 kg Narrative: GENERAL: Very pleasant 63 year old female resting in bed. is at the bedside. SKIN: Warm and dry. HEAD: Atraumatic. Normocephalic. EYES: Pupils equal and round. No scleral icterus. No injection or drainage. ENT: No nasal bleeding or discharge. Mucous membranes pink and moist. NECK: Trachea midline. CARDIOVASCULAR: Regular rate and rhythm. RESPIRATORY: No accessory muscle use. Clear to auscultation. Breath sounds equal bilaterally. GASTROINTESTINAL: Abdomen soft, nondistended. Tender throughout. Faint laparoscopic scars. MUSCULOSKELETAL: Extremities without clubbing, cyanosis, or edema. No obvious deformities. NEUROLOGICAL: Awake and alert. No obvious cranial nerve deficits. Motor grossly within normal limits. Five out of 5 muscle strength in the arms and legs. Normal speech. PSYCHIATRIC: Appropriate mood and affect; insight and judgment normal. - Routine Abdominal Exam Present: soft Comments: No distension Results - Labs 09/29/18 04:58 09/29/18 04:58 Laboratory Results - last 24 hr 09/28/18 09/28/18 06:55 06:55 WBC 5.7 RBC 2.54 L Hgb 8.3 L Hct 24.6 L MCV 97.0 MCH 32.6 MCHC 33.6 RDW 20.6 H D Plt Count 170 MPV 8.4 Neut % (Auto) 67.0 Lymph % (Auto) 21.7 Caswell % (Auto) 11.0 H Eos % (Auto) 0.2 Baso % (Auto) 0.1 Neut # (Auto) 3.8 Lymph # (Auto) 1.2 Caswell # (Auto) 0.6 Eos # (Auto) 0.0 Baso # (Auto) 0.0 WBC Differential . Differential Comment Auto diff final Sodium 140 Potassium 3.7 Chloride 108 H Carbon Dioxide 23.5 Anion Gap 9 BUN 11 Creatinine 0.56 Estimated GFR Greater than 89 Random Glucose 94 Calcium 8.2 L - Imaging CT scan - abdomen: report reviewed, image reviewed Assessment and Plan - Assessment (1) Partial small bowel obstruction Code(s): K56.600 - Partial intestinal obstruction, unspecified as to cause Status: Acute Plan: 63 year old female with ovarian cancer; PSBO -Will give tap water enema today -NPO -IVF -NGT to LIWS if vomiting occurs -Dr. Duran to discuss with Dr. Fleming -Thank you for this consult; We will continue to follow Discussed with Dr. Fleming; reviewed the CT Doubt any obstruction, but will observe and place NG if she has any emesis. The exam, history, and the medical decision-making described in the above note were completed with the assistance of the mid-level provider. I reviewed and agree with the findings presented. I attest that I had a [id number] encounter with the patient on the same day, and personally performed and documented my assessment and findings in the medical record. - Plan Discussed Condition With: Dr. Roger BERNAL RN Nas Deven Dsouza and at the bedside
--- NOTE | 2018-09-28 15:39 | P.PNIM ---
Subjective Interval history: 63-year-old female with history of ovarian cancer presented with nausea vomiting abdominal pain was found to have partial small bowel obstruction with fluid collection, patient was scheduled for outpatient biopsy tomorrow. Patient seen and examined, still having abdominal pain, some nausea, denies shortness of breath, no chest pain, positive diarrhea Physical Exam Vital signs: Last Vital Signs Temp 99.0 F 09/28/18 11:58 Pulse 83 09/28/18 11:58 Resp 16 09/28/18 11:58 BP 105/53 L 09/28/18 11:58 Pulse Ox 92 L 09/28/18 11:58 Intake & Output 09/26/18 09/27/18 09/28/18 09/29/18 06:59 06:59 06:59 06:59 Intake Total 1200 / 1200 Balance 1200 / 1200 Weight 53.977 kg Ill-appearing 63-year-old female who is awake alert Heart S1-S2 regular Lungs clear bilateral decreased breath sounds Abdomen soft nondistended moderate tender epigastric left lower Extremities no clubbing cyanosis no calf tenderness Results Labs CBC & Chem 7: 09/28/18 06:55 09/28/18 06:55 Imaging Imaging: CT scan abdomen and pelvis CONCLUSION:1. Induration the right lower quadrant was questionable thickening of the terminal ileum and a prominent amount of debris seen in the distal colon is concerning for some degree of obstruction. Inflammatory change of the ilium/ enteritis could be considered. Significant dilatation of the small bowel is not seen however. This inflammatory change appears to involve some cystic change or fluid in the right paracolic gutter region.2. Bilobed cystic area seen in the cul-de-sac. This could be related to a right adnexal mass. The patient had a smaller right adnexal mass seen on the prior study. If the patient has not had surgery, the mass has enlarged. If the patient has had surgery, the cystic area could represent seromas. Assessment and Plan (1) Partial small bowel obstruction: Code(s): K56.600 - Partial intestinal obstruction, unspecified as to cause Status: Acute Plan PSBO - npo, ivf, correct electrolytes, ngt if nv persists, appreciate sx eval ILIEITIS - cont empiric iv abx OVARIAN CA s/p recent chemo and hysterectomy w R pelvic paracolic gutter fluid collection - per surgical consult ANEMIA nc prob chronic and related to chemo, monitor hh, no active bleeding noted dvt prophylaxis - heparin sq disposition - home when clinically stable chel diet, Progress Note: Quality VTE Deep Vein Thrombosis/Pulmonary Embolism Present on Admission: No
[2018-09-28] MEDS ORDERED: Heparin - SQ 10,000 UNITS/ML Vial SQ SCH (21:00)
[2018-09-28] MEDS ORDERED: Polyethylene Glycol 3350 17 GM Packet PO ONE (21:10)
--- NOTE | 2018-09-28 22:29 | MB ---
cc: Naye Camacho MD DATE: 09/28/2018 REFERRING PHYSICIAN: DOLORES Casillas HISTORY OF PRESENT ILLNESS: DOLORES Casillas requests a consultation for Mrs. Deven Dsouza regarding history of a gynecologic malignancy, admitted with partial small-bowel obstruction. HISTORY OF PRESENT ILLNESS: Mrs. Deven Dsouza is a 63-year-old woman, well known patient to Dr. Patricia Fleming. She has a history of high-grade serous carcinoma/ovarian cancer. She received neoadjuvant chemotherapy and cytoreductive surgery on 06/05/2018. She had residual disease with some moderate response identified to neoadjuvant chemotherapy. She is receiving adjuvant systemic chemotherapy and has tolerated it quite well. She had her last cycle of chemotherapy about 3 to 4 weeks ago. She is recovering from the chemo-related toxicity. Her white count and platelet count have recovered. She remains mildly anemic. She presented to the emergency room on 09/27/2018 at [facility] with abdominal pain, nausea and vomiting since yesterday. Imaging study was performed. CT scan of the abdomen and pelvis shows induration of the right lower quadrant with questionable thickening of the terminal ileum. There is a prominent amount of debris in the distal colon concerning for obstruction. Inflammatory change of the ileum and enteritis is considered. For this reason, she was transferred to [facility] and admitted. Mrs. Deven Dsouza is unhappy about her stay in the emergency room. She feels that no one has come to see her. She has moved her bowels twice with an enema. She has not had any vomiting. She is hungry and eager to eat. She denies any chest pain or shortness of breath. She denies any sick contact. No headaches. No urinary complaints. She was having right lower quadrant pain. Another concern is the fact that she is scheduled for a CT-guided biopsy of a residual right adnexal mass seen on CT PET scan 08/03/2018. They are scheduled for that tomorrow. She is eager to proceed with that evaluation. She has done extremely well with her chemotherapy postoperatively. She is looking to review this finding. The CT scan from 09/27/2018 confirmed a bilobed cystic area seen in the cul-de-sac. This is thought to be a right adnexal mass. A seroma is considered. PAST MEDICAL HISTORY: Anxiety, gastroesophageal reflux disease, osteoporosis or ovarian cancer. PAST SURGICAL HISTORY: Debulking surgery, carpal tunnel surgery, breast implants FAMILY HISTORY: No family history of cancer. SOCIAL HISTORY: Denies any tobacco, alcohol or illicit drug use. She is and lives with her . ALLERGIES: NO KNOWN DRUG ALLERGIES. MEDICATIONS: 1. Acetaminophen p.r.n. 2. Milk of magnesia p.r.n. 3. Dulcolax p.r.n. 4. Unfractionated heparin. 5. Lactulose. 6. Lorazepam. 7. Flagyl. 8. Morphine. 9. Zofran. 10. Percocet. 11. Piperacillin. 12. Tazobactam. 13. MiraLax. 14. Senokot. PHYSICAL EXAMINATION: VITAL SIGNS: Temperature 98.6, heart rate 76, respiratory rate 16, blood pressure 126/60, and saturation 97%. GENERAL: Mrs. Deven Dsouza is a well-developed woman, who looks her stated age. She has alopecia. She has some pallor. HEENT: Her pupils are round, reactive to light and accommodation. Oropharynx is clear. NECK: Supple. LUNGS: Clear. CARDIOVASCULAR: Reveals normal rate and rhythm. ABDOMEN: Soft, some tenderness in the left lower quadrant, benign. No guarding or rebound. LOWER EXTREMITIES: No edema. LABORATORY DATA: Significant for a normocytic anemia with hemoglobin of 8.3, white blood cell count are normal. Chemistry shows normal liver functions normal renal function. Lactic acid is normal. Last CA-125 was 33.3 on 09/19/2018. ASSESSMENT AND PLAN: Mrs. Deven Dsouza is a 63-year-old woman, well known patient to Dr. Patricia Fleming. Dr. Fleming is away and I am covering. She appears to have recovered from hematologic toxicity associated with the last cycle of chemotherapy. Her white count is normal. Her platelet count is normal. No specific therapy is required for the chemotherapy-induced anemia. I anticipate that this would continue to improve. She had her last cycle 3 or 4 weeks ago. We discussed the CT PET scan results showing the right adnexal mass. Dr. Fleming had intended to biopsy this lesion and was scheduled for tomorrow. We will coordinate the biopsy of this through interventional radiology tomorrow. The case was discussed with Dr. Duran who finds no contraindication to this procedure. She seems to be resolving the small bowel obstruction on her own. She had some bowel movement after her enema. She will be given some MiraLax, which is the laxative of her choice. She has some stool in the colon. Hopefully, this would continue to initiate bowel movement. Etiology of the abdominal pain needs to be elucidated. From Dr. Fleming' evaluation and recommendation, a biopsy of the adnexal mass was recommended. We will proceed with this as planned. The unfractionated heparin for DVT prophylaxis will be placed on hold. She is supported with IV fluid hydration. A multivitamin will be added to her D5 normal saline. She is quite anxious and missed her dose of lorazepam yesterday. A dose of lorazepam is administered stat. Lorazepam is offered on a p.r.n. basis from here on. The [facility] charge was called. The patient should probably be transferred to the oncology floor. She is one of our patients and may have toxicity post treatment with chemotherapy. We will monitor her closely. No objection from Dr. Duran for this transfer. Lastly, we will coordinate a KUB in the morning to see her response with the enema, lactulose. We will monitor response from the enema, bowel rest and MiraLax. Anticipate that the abdominal pain and discomfort would improve. She will followup with Dr. Fleming, the result of the adnexal mass biopsy. Pathology would be available to her at a later time. MD GAY Ribera/wayne , 09:29 PM , 09:49 PM
[2018-09-28] MEDS ORDERED: NACL 0.9% IV.CONT SCH (23:00)
[2018-09-28] MEDS ORDERED: MULTIVITAMIN IV.CONT SCH (23:00)
[2018-09-28] MEDS ORDERED: DEXTROSE IV.CONT SCH (23:00)
[2018-09-29 05:39] LABS: INR 1.1 Ratio; Prothrombin Time 11.6 sec (9.8-11.6)
[2018-09-29 05:40] LABS: Baso % (Auto) 0.1 % (0.0-2.0); Eos % (Auto) 0.4 % (0.0-4.0); Hematocrit 26.1 % (35.0-46.0); Lymph # (Auto) 1.6 th/mm3 (1.0-4.8); Lymph % (Auto) 25.6 % (9.0-44.0); Mean Corpuscular HGB Conc 34.4 % (32.0-36.0); Mean Corpuscular Hemoglobin 33.2 pg (27.0-34.0); Mean Corpuscular Volume 96.6 fL (80.0-100.0); Mean Platelet Volume 8.2 fL (7.0-11.0); Mono # (Auto) 0.7 th/mm3 (0.0-0.9); Mono % (Auto) 11.7 % (0.0-8.0); Neut # (Auto) 3.9 th/mm3 (1.8-7.7); Neut % (Auto) 62.2 % (16.0-70.0); Platelet Count 214 th/mm3 (150-450); Red Cell Distribution Width 20.8 % (11.6-17.2); White Blood Count 6.2 th/mm3 (4.0-11.0)
[2018-09-29 05:57] LABS: Anion Gap 7 meq/L (5-15); Blood Urea Nitrogen 11 mg/dL (7-18); Calcium 8.2 mg/dL (8.5-10.1); Carbon Dioxide 23.9 meq/L (21.0-32.0); Chloride 110 meq/L (98-107); Glomerular Filtration Rate Greater Than 89 mL/min (>89); Glucose,Random 88 mg/dL (74-106); Potassium 3.4 meq/L (3.5-5.1); Sodium 141 meq/L (136-145)
[2018-09-29 05:58] LABS: % Iron Saturation 11.7 % (20-50); Iron 26 mcg/dL (50-170); Total Iron Binding Capacity 223 mcg/dL (250-450)
[2018-09-29] MEDS ORDERED: Lidocaine 1%/Epinephrine 1:100,000 Inj 50 ML Vial ONE (09:04)
[2018-09-29] MEDS ORDERED: fentaNYL Citrate Inj 250 MCG/5 ML Ampul ONE (09:10)
--- NOTE | 2018-09-29 09:44 | XR ---
EXAM DATE: 09/29/2018 9:33 AM EST AGE/SEX: 63 years / Female INDICATIONS: Abdominal pain, evaluate obstruction. CLINICAL DATA: This is the patient's subsequent encounter. Patient reports that signs and symptoms h ave been present for 3 days and indicates a pain score of 2/10. MEDICAL/SURGICAL HISTORY: Carcinoma, ovarian. Gastroesophageal reflux disease. Osteoporosis. Chemotherapy Hysterectomy. infusaport COMPARISON: [facility], CT ABDOMEN & PELVIS W/O CONTRAST, 09/27/2018. . FINDINGS: The abdominal bowel gas pattern is normal. No abnormal masses, calcifications, or organomegaly is s een. The osseous structures are unremarkable. Surgical clips are noted within the right lower quadra nt CONCLUSION: No bowel obstruction or ileus. Electronically signed by: Yeison Lui MD Board Certified Radiologist 09/29/2018 9:42 AM EST
--- NOTE | 2018-09-29 10:31 | P.PNGS ---
Subjective Interval history: Patient feeling better today at bedside Physical Exam Vital signs: Vital Signs 09/28/18 11:58 09/28/18 16:00 09/28/18 20:00 Temperature 99.0 F 99.0 F 98.6 F Pulse Rate 83 81 76 Respiratory Rate 16 16 16 Blood Pressure 105/53 L 118/56 L 126/60 Pulse Oximetry 92 L 99 97 09/28/18 22:45 09/29/18 04:40 09/29/18 08:00 Temperature 99.2 F 99.8 F H Pulse Rate 90 85 92 H Respiratory Rate 18 16 16 Blood Pressure 112/70 115/67 110/63 Pulse Oximetry 96 96 97 Intake & Output 09/28/18 09/29/18 09/29/18 18:59 06:59 18:59 Intake Total 1200 / 1200 1200 / 1200 100 / 100 Balance 1200 / 1200 1200 / 1200 100 / 100 Weight 53.9 kg Intake: IV 1200 / 1200 1200 / 1200 100 / 100 NS Inj 1,000 ML @ 100 mls/hr IV 1000 / 1000 1000 / 1000 .CONT .Q10H [facility] Rx#:[id number] Flagyl 500 MG Inj 100 ML @ 100 200 / 200 200 / 200 100 / 100 mls/hr IV.SIG Q6H [facility] Rx#: [id number] Other: # Voids 2 Date of Last Bowel Movement 09/28/18 Narrative: Alert and awake Abd: soft; very minimally tender to palpation Results - Labs 09/29/18 04:58 09/29/18 04:58 Laboratory Results - last 24 hr 09/29/18 09/29/18 09/29/18 04:58 04:58 04:58 WBC 6.2 RBC 2.70 L Hgb 9.0 L Hct 26.1 L MCV 96.6 MCH 33.2 MCHC 34.4 RDW 20.8 H Plt Count 214 MPV 8.2 Neut % (Auto) 62.2 Lymph % (Auto) 25.6 Jennings % (Auto) 11.7 H Eos % (Auto) 0.4 Baso % (Auto) 0.1 Neut # (Auto) 3.9 Lymph # (Auto) 1.6 Jennings # (Auto) 0.7 Eos # (Auto) 0.0 Baso # (Auto) 0.0 WBC Differential . Differential Comment Auto diff final PT 11.6 INR 1.1 Sodium 141 Potassium 3.4 L Chloride 110 H Carbon Dioxide 23.9 Anion Gap 7 BUN 11 Creatinine 0.59 Estimated GFR Greater than 89 Random Glucose 88 Calcium 8.2 L Iron 26 L TIBC 223 L % Saturation 11.7 L - Imaging Imaging: ITS Impressions Abdomen X-Ray 09/29/18 00:00 CONCLUSION: No bowel obstruction or ileus. Assessment and Plan - Assessment (1) Partial small bowel obstruction Code(s): K56.600 - Partial intestinal obstruction, unspecified as to cause Status: Acute Plan: 63 year old female with ovarian cancer; PSBO -+BM after tap water enema -Abdominal exam benign -Patient is scheduled for CT guided biopsy this morning---she needs to remain NPO for that--okay to start clear liquids after and advance diet as tolerated -KUB reviewed--- no obstruction seen -Discussed with patient, and RN Rubin -GS will sign off; Please call with any questions Abdomen benign; tolerating diet No problems with biopsy Will see as needed. I attest that I had a [id number] encounter with the patient on the same day, and personally performed and documented my assessment and findings in the medical record. The exam, history, and the medical decision-making described in the above note were completed with the assistance of the mid-level provider. I reviewed and agree with the findings presented. I attest that I had a [id number]-[id number] encounter with the patient on the same day, and personally performed and documented my assessment and findings in the medical record.
--- NOTE | 2018-09-29 10:52 | P.RAD ---
Post Procedure Progress Note - Post Procedure Diagnosis (1) Ovarian cancer - Procedure Information Procedure Date: 09/29/18 Supervising Radiologist: Bola Daniels MD Estimated blood loss (mL): 1 Anesthesia: Local, Analgesia, Conscious Sedation - Plan of Activity Patient to Unit: ROPU Patient Condition: Good See PACS Report for procedural detail/treatment. Drainage Procedure CT left Aspiration Placement Fluid Description: Clear, Yellow Findings: Aspirated bilobed fluid collection in pelvis. Problem post-op seroma by appearance. 60 cc sent to lab
--- NOTE | 2018-09-29 14:17 | CT ---
EXAM DATE: 09/29/2018 12:39 PM EST AGE/SEX: 63 years / Female INDICATIONS: Pelvic cyst. CLINICAL DATA: This is the patient's initial encounter. Patient reports that signs and symptoms have been present for 1 day and indicates a pain score of 0/10. MEDICAL/SURGICAL HISTORY: Carcinoma, ovarian. None. COMPARISON: No prior exams available for comparison. BIOPSY SITE: pelvic cyst MEDICATION(S): 2.5mg midazolam (Versed) IV 200mcg fentanyl (Sublimaze) IV DEVICE(S): 17 gauge Introducer FLUID: Total volume of 60 of clear, yellow fluid was removed. Fluid was sent to lab for ordered studies.. . . PROCEDURE : CT guided drainage of the pelvic cyst. The risks, benefits and alternatives to the procedure were explained and verbal and written consent w as obtained. Using automated exposure control and adjustment of the mA and/or kV according to patient size, radiation dose was kept as low as reasonably achievable to obtain optimal diagnostic quality i mages. The site was prepped in sterile fashion. Full sterile technique was used, including cap, ma sk, sterile gloves and gown and a large sterile sheet. Hand hygiene and 2% chlorhexidine and/or beta dine/alcohol prep was utilized per protocol for cutaneous antisepsis. The skin and subcutaneous tiss ues were infiltrated with local anesthetic solution. DICOM format image data is available electronic ally for review and comparison. Using CT guidance the prescribed site was localized. Using blunt needle, the 17-gauge introducer was advanced of the presumed cystic collection. Position was confirmed with CT. The needle was then adva nced into the collection. A total of 60 cc of clear yellow fluid was aspirated. The last 3 cc was blo dyan in the appearance was most characteristic of a postoperative seroma. The patient tolerated the procedure well and there were no complications. The patient tolerated the procedure well and there were no complications. The patient was sent to post anesthesia recovery in s table condition. CONCLUSION: 1. Uncomplicated CT guided drainage. Probable postoperative seroma. 60 cc was sent to the laboratory for cytology as well as Gram stain Electronically signed by: Bola Daniels MD Board Certified Radiologist 09/29/2018 2:15 PM EST
--- NOTE | 2018-09-29 17:35 | P.PNIM ---
Subjective Interval history: Patient says she is feeling much better. Denies any chest pain or shortness of breath. Denies abdominal pain. Feels like going home. Physical Exam Vital signs: Vital Signs 09/28/18 20:00 09/28/18 22:45 09/29/18 04:40 Temperature 98.6 F 99.2 F 99.8 F H Pulse Rate 76 90 85 Respiratory Rate 16 18 16 Blood Pressure 126/60 112/70 115/67 Pulse Oximetry 97 96 96 09/29/18 08:00 09/29/18 12:02 09/29/18 16:00 Temperature 98.6 F 98.5 F Pulse Rate 92 H 73 81 Respiratory Rate 16 16 16 Blood Pressure 110/63 99/55 L 97/64 L Pulse Oximetry 97 99 99 Intake & Output 09/28/18 09/29/18 09/29/18 18:59 06:59 18:59 Intake Total 1200 / 1200 1200 / 1200 1201 / 1201 Balance 1200 / 1200 1200 / 1200 1201 / 1201 Weight 53.9 kg Intake: IV 1200 / 1200 1200 / 1200 1201 / 1201 MVI-12 Inj 1 ML In D5W/Normal 1001 / 1001 Saline Inj 1,000 ML @ 84 mls/hr IV.CONT .[id number] [facility] Rx#: [id number] NS Inj 1,000 ML @ 100 mls/hr IV 1000 / 1000 1000 / 1000 .CONT .Q10H [facility] Rx#:[id number] Flagyl 500 MG Inj 100 ML @ 100 200 / 200 200 / 200 200 / 200 mls/hr IV.SIG Q6H [facility] Rx#: [id number] Other: # Voids 2 Date of Last Bowel Movement 09/28/18 09/29/18 Narrative: GENERAL: Patient lying in bed. Appears comfortable. at bedside. SKIN: Warm and dry. HEAD: Normocephalic. EYES: No scleral icterus. No injection or drainage. NECK: Supple, trachea midline. No JVD. CARDIOVASCULAR: Regular rate and rhythm without murmurs, gallops, or rubs. RESPIRATORY: Breath sounds equal bilaterally. No accessory muscle use. GASTROINTESTINAL: Abdomen soft, non-tender, nondistended. Positive bowel sounds. MUSCULOSKELETAL: No cyanosis, or edema. BACK: Nontender without obvious deformity. No CVA tenderness. Results - Labs CBC & Chem 7: 09/29/18 04:58 09/29/18 04:58 Laboratory Results - last 24 hr 09/29/18 09/29/18 09/29/18 04:58 04:58 04:58 WBC 6.2 RBC 2.70 L Hgb 9.0 L Hct 26.1 L MCV 96.6 MCH 33.2 MCHC 34.4 RDW 20.8 H Plt Count 214 MPV 8.2 Neut % (Auto) 62.2 Lymph % (Auto) 25.6 [place] % (Auto) 11.7 H Eos % (Auto) 0.4 Baso % (Auto) 0.1 Neut # (Auto) 3.9 Lymph # (Auto) 1.6 [place] # (Auto) 0.7 Eos # (Auto) 0.0 Baso # (Auto) 0.0 WBC Differential . Differential Comment Auto diff final PT 11.6 INR 1.1 Sodium 141 Potassium 3.4 L Chloride 110 H Carbon Dioxide 23.9 Anion Gap 7 BUN 11 Creatinine 0.59 Estimated GFR Greater than 89 Random Glucose 88 Calcium 8.2 L Iron 26 L TIBC 223 L % Saturation 11.7 L Microbiology 09/29/18 11:00 Fluid - Other Gram Stain - Final - Imaging Impressions Abdomen X-Ray 09/29/18 00:00 CONCLUSION: No bowel obstruction or ileus. Needle Aspiration CT 09/29/18 00:00 CONCLUSION: 1. Uncomplicated CT guided drainage. Probable postoperative seroma. 60 cc was sent to the laboratory for cytology as well as Gram stain Assessment and Plan - Assessment (1) Partial small bowel obstruction Code(s): K56.600 - Partial intestinal obstruction, unspecified as to cause Status: Acute - Plan //PSBO - npo, ivf, correct electrolytes, ngt if nv persists, appreciate sx eval = Resolved. Appreciate general surgery assistance. Discussed with Dr. Camacho. There was some inflammation on CT, however this is likely secondary to constipation. No signs of infection. No need for continued antibiotics as no signs of infection. //ILIEITIS - cont empiric iv abx //OVARIAN CA s/p recent chemo and hysterectomy w R pelvic paracolic gutter fluid collection - per surgical consult = Biopsy. Gram stain does not appear to be infection. Patient advised to follow-up with oncology as outpatient for final pathology results.. //ANEMIA nc prob chronic and related to chemo, monitor hh, no active bleeding noted. Follow-up with oncology as outpatient. Hemoglobin stable. No signs of bleeding. //dvt prophylaxis - heparin sq Discussed Condition With: Patient, nurse, at bedside, Dr. Camacho, general surgery. Discharge Planning: Discharge home. Follow-up with oncology as outpatient.
[2018-09-29] MEDS ORDERED: *Heparin Central Flush 100 UNIT/ML 3 ML Syringe Periprocedural ONLY IV.FLUSH ONE (19:00)
== END 2018-09-29 18:59 | disposition home or self-care (01) ==
LOC: NEDDLT 09-28 01:25 → NEPGCP 09-28 01:35 → INTOOBSV 09-28 01:35 → HCIN 09-28 22:35
PROVIDERS: ADMIT Internal Medicine; ATTEND Internal Medicine

== ENCOUNTER 2018-11-25 21:01 | Observation (INO) ==
[2018-11-25] MEDS ORDERED: Sod Chloride 0.9% Inj 1,000 ML IV.SIG ONE (21:49)
--- NOTE | 2018-11-25 22:21 | CT ---
EXAM DATE: 11/25/2018 10:06 PM EST AGE/SEX: 63 years / Female INDICATIONS: Abdominal pain; possible bowel obstruction. CLINICAL DATA: This is the patient's initial encounter. Patient reports that signs and symptoms have been present for 1 day and indicates a pain score of 8/10. MEDICAL/SURGICAL HISTORY: Carcinoma, ovarian. Osteoporosis. bowel obstruction Breast augmenta tion. Colon resection. Hysterectomy. RADIATION DOSE: 6.64 CTDI (mGy) COMPARISON: [place], CT ABDOMEN & PELVIS W CONTRAST, 10/07/2018. . TECHNIQUE: Multiple contiguous axial images were obtained through the abdomen. Images were obtained using multiple row detector helical technique. Using automated exposure control and adjustment of the mA and/or kV according to patient size, radiation dose was kept as low as reasonably achievable to o btain optimal diagnostic quality images. DICOM format image data is available electronically for rev iew and comparison. FINDINGS: Exam is compared with October 07. There is a history of ovarian carcinoma and colonic resection. Sta ple line is noted in the rectum and in the right lower quadrant. There is some loculated fluid in the deep posterior pelvis measuring up to 5.9 x 2.8 cm in diameter which I believe is outside of bowel. There is mural thickening of distal colon proximal to suture line may indicate a mild colitis. Lung bases are clear except minimal dependent atelectasis. Previous breast augmentation. No acute fin dings in the liver, spleen, adrenals, kidneys or pancreas. Stable left renal cyst. There is no eviden ce for small bowel obstruction. CONCLUSION: 1. No bowel obstruction identified. There is some mural thickening of the distal colon that may kemar saundra a mild colitis. 2. Loculated fluid collection near the previous surgical site in the rectum measuring up to 5.9 x 2. 8 cm. This appears to be outside of bowel and does contain some air. Cannot exclude infection. Electronically signed by: Bijan Sim MD Board Certified Radiologist 11/25/2018 10:20 PM EST
[2018-11-25 22:48] LABS: Baso % (Auto) 0.5 % (0.0-2.0); Eos % (Auto) 0.4 % (0.0-4.0); Hematocrit 27.9 % (35.0-46.0); Hemoglobin 9.6 gm/dL (11.6-15.3); Lymph % (Auto) 14.4 % (9.0-44.0); Mean Corpuscular HGB Conc 34.4 % (32.0-36.0); Mean Corpuscular Hemoglobin 29.7 pg (27.0-34.0); Mean Corpuscular Volume 86.4 fL (80.0-100.0); Mean Platelet Volume 7.4 fL (7.0-11.0); Mono # (Auto) 0.2 th/mm3 (0.0-0.9); Mono % (Auto) 3.7 % (0.0-8.0); Neut # (Auto) 5.4 th/mm3 (1.8-7.7); Platelet Count 434 th/mm3 (150-450); Red Blood Count 3.23 mil/mm3 (4.00-5.30); Red Cell Distribution Width 17.9 % (11.6-17.2); White Blood Count 6.6 th/mm3 (4.0-11.0)
[2018-11-25 23:04] LABS: Bacteria,Urine Occasional /hpf; Bilirubin,Urine Negative (Negative); Calcium Oxalate Crystals,Urine Occasional /hpf; Clarity,Urine Turbid (Clear); Color,Urine Amber (Yellw/Straw); Glucose,Urine (UA) Negative (Negative); Leukocyte Esterase,Urine Large (Negative); Mucus,Urine Many /lpf (Occasional); Nitrite,Urine Negative (Negative); Specific Gravity,Urine 1.028 (1.002-1.035); Squamous Epithelial Cell,Urine 7 /hpf (0-5)
[2018-11-25 23:05] LABS: Alanine Aminotransferase 11 U/L (10-53); Albumin 2.8 g/dL (3.4-5.0); Anion Gap 8 meq/L (5-15); Aspartate Aminotransferase 10 U/L (15-37); Blood Urea Nitrogen 17 mg/dL (7-18); Calcium 8.4 mg/dL (8.5-10.1); Carbon Dioxide 27.5 meq/L (21.0-32.0); Chloride 106 meq/L (98-107); Glomerular Filtration Rate Greater Than 89 mL/min (>89); Glucose,Random 110 mg/dL (74-106); Lipase 349 U/L (73-393); Potassium 3.2 meq/L (3.5-5.1); Sodium 141 meq/L (136-145)
[2018-11-25 23:07] LABS: Alkaline Phosphatase 71 U/L (45-117); Total Protein 6.9 g/dL (6.4-8.2)
[2018-11-25] MEDS ORDERED: Potassium Chloride 25 MEQ Effervescent Tablet PO ONE (23:19)
--- NOTE | 2018-11-25 23:30 | ED ---
HPI General Chief Complaint: Abdominal Pain Stated Complaint: states poss bowel obstruction Time Seen by Provider: 11/25/18 21:11 Source: patient and family () Mode of arrival: ambulatory Limitations: no limitations History of Present Illness HPI narrative: 63-year-old female came to the emergency room brought in by her with history of abdominal discomfort and intractable vomiting. Patient says that she has history of stage III ovarian cancer and had a colon surgery done by Dr. Hastings 4 weeks back. She has history of past small bowel obstruction. She was doing fine up until this morning when she woke up in felt bloated. She did not have any bowel movement or pass gas and from the afternoon started vomiting. The says the vomiting is mostly mucus coming out but she is unable to tolerate anything by mouth. Whenever she eats or drinks tends to come out immediately. Dr. Hastings was contacted and she was recommended to come to the emergency room. Vital signs are stable. The abdominal discomfort is all over the abdomen. No aggravating or relieving symptoms identified. No radiation. says that patient took a Dulcolax suppository which made her have a small amount of bowel movement but did not relieve her symptoms. Related Data Home Medications Medication Instructions Recorded Confirmed ascorbic acid (vitamin C) [Vitamin 250 mg PO DAILY 06/05/18 11/05/18 C] [id number] 1 tab PO DAILY 06/05/18 11/05/18 [[employer]] lorazepam [Ativan] 0.5 mg PO HS 10/08/18 11/05/18 cholecalciferol (vitamin D3) 2,000 unit PO DAILY 10/24/18 11/05/18 [Vitamin D3] vitamin B complex [B-Complex] 1 tab PO DAILY 10/24/18 11/05/18 Previous Rx's Medication Instructions Recorded megestrol 400 mg PO DAILY 30 Days #300 ml 11/08/18 polyethylene glycol 3350 [Miralax] 17 g PO DAILY 30 Days each 11/08/18 Allergies Allergy/AdvReac Type Severity Reaction Status Date / Time fire ant Allergy Mild Anaphylaxis Verified 10/30/18 12:14 Review of Systems ROS: all other systems reviewed are negative [facility] Medical History Medical History Anxiety (Acute) Breast implant status (Acute) Carpal tunnel syndrome of right wrist (Acute) Fibroid, uterine (Acute) GERD (gastroesophageal reflux disease) (Acute) H/O pelvic mass (Acute) Hx of intestinal obstruction (Acute) Hx of ovarian cancer (Acute) Osteoporosis (Acute) Port-A-Cath in place (Acute) Surgical History Surgical History H/O: hysterectomy (Acute) History of carpal tunnel release of both wrists (Acute) History of intestinal surgery (Acute) Family History Family History Other No history of cancer Social History Social History Substance History: No History of Abuse Second Hand Smoke Exposure: No Smoking Status: Never smoker How Often Do You Have a Drink Containing Alcohol: Never Recent Travel in [facility] within the Last 8 Weeks: No Recent Out of Country Travel within the Last 8 Weeks: No Immunization History Tetanus Immunization: <5 Years Exam Narrative Exam Narrative: GENERAL: Awake, alert, flat affect, mild distress SKIN: Focused skin assessment warm/dry. HEAD: Atraumatic. Normocephalic. EYES: Pupils equal and round. No scleral icterus. No injection or drainage. ENT: No nasal bleeding or discharge. Mucous membranes pink and moist. NECK: Trachea midline. No JVD. CARDIOVASCULAR: Regular rate and rhythm. No murmur appreciated. RESPIRATORY: No accessory muscle use. Clear to auscultation. Breath sounds equal bilaterally. GASTROINTESTINAL: Abdomen soft, non-tender, nondistended. Hepatic and splenic margins not palpable. MUSCULOSKELETAL: No obvious deformities. No clubbing. No cyanosis. No edema. NEUROLOGICAL: Awake and alert. No obvious cranial nerve deficits. Motor grossly within normal limits. Normal speech. PSYCHIATRIC: Flat affect; insight and judgment normal. Course Initial Documented Vital Signs Temperature 98.2 F 11/25/18 21:05 Pulse Rate 94 H 11/25/18 21:05 Respiratory Rate 18 11/25/18 21:05 Blood Pressure 128/60 11/25/18 21:05 Pulse Oximetry 100 11/25/18 21:05 Last Documented Vital Signs Temperature 98.2 F 11/27/18 12:00 Pulse Rate 87 11/27/18 12:00 Respiratory Rate 16 11/27/18 12:00 Blood Pressure 113/65 11/27/18 12:00 Pulse Oximetry 100 11/27/18 12:00 Medical Decision Making MDM Narrative Medical decision making narrative: 11:29 PM based on the CAT scan report I discussed with Dr. Hastings who is on-call tonight. As per her these are postop changes. She does not think there is anything surgical but patient should be admitted and she will see the patient tomorrow morning. The low potassium was treated with p.o. replacement. Awaiting for the hospitalist to call back for admission. Patient was given 1 L of IV fluid bolus and Zofran. Medical Screen Exam Complete: Yes Emergency Medical Condition: Yes Lab Data Result diagrams: 11/26/18 08:38 11/26/18 08:38 Lab Results 11/25/18 11/25/18 11/25/18 Range/Units 22:20 22:20 22:20 WBC 6.6 (4.0-11.0) th/mm3 RBC 3.23 L (4.00-5.30) mil/mm3 Hgb 9.6 L (11.6-15.3) gm/dL Hct 27.9 L (35.0-46.0) % MCV 86.4 (80.0-100.0) fL MCH 29.7 (27.0-34.0) pg MCHC 34.4 (32.0-36.0) % RDW 17.9 H (11.6-17.2) % Plt Count 434 D (150-450) th/mm3 MPV 7.4 (7.0-11.0) fL Neut % (Auto) 81.0 H (16.0-70.0) % Lymph % (Auto) 14.4 (9.0-44.0) % [place] % (Auto) 3.7 (0.0-8.0) % Eos % (Auto) 0.4 (0.0-4.0) % Baso % (Auto) 0.5 (0.0-2.0) % Neut # (Auto) 5.4 (1.8-7.7) th/mm3 Lymph # (Auto) 1.0 (1.0-4.8) th/mm3 [place] # (Auto) 0.2 (0.0-0.9) th/mm3 Eos # (Auto) 0.0 (0.0-0.4) th/mm3 Baso # (Auto) 0.0 (0.0-0.2) th/mm3 WBC Differential . Differential Comment Auto diff final Sodium 141 (136-145) meq/L Potassium 3.2 L (3.5-5.1) meq/L Chloride 106 (98-107) meq/L Carbon Dioxide 27.5 (21.0-32.0) meq/L Anion Gap 8 (5-15) meq/L BUN 17 (7-18) mg/dL Creatinine 0.61 (0.50-1.00) mg/dL Estimated GFR Greater than 89 (>89) mL/min Random Glucose 110 H (74-106) mg/dL Calcium 8.4 L (8.5-10.1) mg/dL Magnesium 2.0 (1.5-2.5) mg/dL Total Bilirubin 0.2 (0.2-1.0) mg/dL AST 10 L (15-37) U/L ALT 11 (10-53) U/L Alkaline Phosphatase 71 (45-117) U/L Total Protein 6.9 (6.4-8.2) g/dL Albumin 2.8 L (3.4-5.0) g/dL Lipase 349 (73-393) U/L Urine Color Cece (Yellw/Straw) Urine Clarity Turbid H (Clear) Urine pH 5.0 (5.0-8.5) Ur Specific [place] 1.028 (1.002-1.035) Urine Protein 30 H (Neg-Trace) mg/dL Urine Glucose (UA) Negative (Negative) mg/dL Urine Ketones 20 (Negative) mg/dL Urine Occult Blood Negative (Negative) Urine Nitrate Negative (Negative) Urine Bilirubin Negative (Negative) Urine Urobilinogen Less than 2 (Less than 2) mg/dL Ur Leukocyte Esterase Large H (Negative) Urine RBC 31 H (0-3) /hpf Urine WBC (0-5) /hpf Urine WBC Clumps Many H (None) Ur Squamous Epith Cells 7 (0-5) /hpf Calcium Oxalate Crystal Occasional H (None) /hpf Urine Bacteria Occasional H (None) /hpf Urine Mucus Many H (Occasional) /lpf Micro UA Comment Culture indicated Ur Microscopic Review Not Reportable Urine Culture Comments Culture indicated 11/26/18 11/26/18 Range/Units 08:38 08:38 WBC 5.8 (4.0-11.0) th/mm3 RBC 3.04 L (4.00-5.30) mil/mm3 Hgb 8.7 L (11.6-15.3) gm/dL Hct 26.4 L (35.0-46.0) % MCV 86.9 (80.0-100.0) fL MCH 28.7 (27.0-34.0) pg MCHC 33.1 (32.0-36.0) % RDW 18.0 H (11.6-17.2) % Plt Count 393 (150-450) th/mm3 MPV 7.4 (7.0-11.0) fL Neut % (Auto) 72.9 H (16.0-70.0) % Lymph % (Auto) 19.7 (9.0-44.0) % [place] % (Auto) 5.0 (0.0-8.0) % Eos % (Auto) 2.0 (0.0-4.0) % Baso % (Auto) 0.4 (0.0-2.0) % Neut # (Auto) 4.2 (1.8-7.7) th/mm3 Lymph # (Auto) 1.1 (1.0-4.8) th/mm3 [place] # (Auto) 0.3 (0.0-0.9) th/mm3 Eos # (Auto) 0.1 (0.0-0.4) th/mm3 Baso # (Auto) 0.0 (0.0-0.2) th/mm3 WBC Differential . Differential Comment Auto diff final Sodium 142 (136-145) meq/L Potassium 3.6 (3.5-5.1) meq/L Chloride 108 H (98-107) meq/L Carbon Dioxide 26.5 (21.0-32.0) meq/L Anion Gap 8 (5-15) meq/L BUN 15 (7-18) mg/dL Creatinine 0.67 (0.50-1.00) mg/dL Estimated GFR 89 (>89) mL/min Random Glucose 96 (74-106) mg/dL Calcium 8.3 L (8.5-10.1) mg/dL Magnesium (1.5-2.5) mg/dL Total Bilirubin 0.2 (0.2-1.0) mg/dL AST 12 L (15-37) U/L ALT 11 (10-53) U/L Alkaline Phosphatase 64 (45-117) U/L Total Protein 6.4 (6.4-8.2) g/dL Albumin 2.6 L (3.4-5.0) g/dL Lipase (73-393) U/L Urine Color (Yellw/Straw) Urine Clarity (Clear) Urine pH (5.0-8.5) Ur Specific [place] (1.002-1.035) Urine Protein (Neg-Trace) mg/dL Urine Glucose (UA) (Negative) mg/dL Urine Ketones (Negative) mg/dL Urine Occult Blood (Negative) Urine Nitrate (Negative) Urine Bilirubin (Negative) Urine Urobilinogen (Less than 2) mg/dL Ur Leukocyte Esterase (Negative) Urine RBC (0-3) /hpf Urine WBC (0-5) /hpf Urine WBC Clumps (None) Ur Squamous Epith Cells (0-5) /hpf Calcium Oxalate Crystal (None) /hpf Urine Bacteria (None) /hpf Urine Mucus (Occasional) /lpf Micro UA Comment Ur Microscopic Review Urine Culture Comments Imaging Data Radiologist's impression: Abdomen/Pelvis CT 11/25/18 21:49 CONCLUSION: 1. No bowel obstruction identified. There is some mural thickening of the distal colon that may indicate a mild colitis. 2. Loculated fluid collection near the previous surgical site in the rectum measuring up to 5.9 x 2.8 cm. This appears to be outside of bowel and does contain some air. Cannot exclude infection. Discharge Plan Discharge Disposition Patient Disposition: ED Admit(ED Internal Use Only) Discharge Condition Condition: Stable Discharge Order Discharge Orders: Discharge Order (Routine); Ordered 11/27/18 Ordered By: Suzanne Christian ED Use Only Admit Order (Routine); Ordered 11/25/18 Ordered By: Birgit Burgess Discharge Details Anticipated Discharge Date: 11/27/18 Physicians Team ED Provider: Birgit Burgess Primary Care Provider: Rhona Stewart Attending Provider: Suzanne Christian Other Providers: [facility],Insurance ; Mary Hastings Status ED Status: Left Department Discharge Information Discharge Date/Time: 11/26/18 01:57
[2018-11-25] MEDS ORDERED: Morphine Sulfate Inj 2 MG/ML Vial IV.PUSH PRN (23:37)
[2018-11-25] MEDS ORDERED: Acetaminophen 325 MG Tablet PO PRN (23:37)
[2018-11-25] MEDS ORDERED: Bisacodyl 10 MG Supp RECTAL PRN (23:37)
--- NOTE | 2018-11-25 23:41 | P.HPIM ---
History of Present Illness Primary Care Physician: Rhona Stewart History of Present Illness: This is a 63-year-old female with a PMH of SBO and Stage 3 Ovarian CA s/p Sigmoid Resection and Tumor Debulking 10/30/[address] Hastings and Dr. Fleming who presented to the ER w/ c/o abdominal pain in addition to nausea/vomiting. States she had been doing well since discharge on 11/08/18 until this morning when she developed acute onset abdominal pain. Pain is generalized, constant, 10/10, non-radiating. Notes small BM today but was concerned for recurrent bowel obstruction, using OTC Dulcolax and suppository w / no relief. On arrival, BP 128/60, HR 94, O2 sat 100% on RA, Afebrile. CBC at baseline. K+ 3.2. UA positive for UTI. CT Abdomen/Pelvis with no bowel obstruction, small mural thickening of distal colon possibly mild colitis, loculated fluid collection near surgical site. ER physician discussed with Dr. Hastings, findings normal postsurgical changes, no surgical intervention needed at this time. Diagnosis (1) Ovarian ca: (2) Colitis: (3) Intractable nausea and vomiting: (4) Hypokalemia: (5) UTI (urinary tract infection): Review of Systems PAST FAMILY HISTORY: Reviewed. No h/o DM or CAD Review of Systems: all other systems reviewed are negative [facility] Medical History Medical History Anxiety (Acute) Breast implant status (Acute) Carpal tunnel syndrome of right wrist (Acute) Fibroid, uterine (Acute) GERD (gastroesophageal reflux disease) (Acute) H/O pelvic mass (Acute) Hx of intestinal obstruction (Acute) Hx of ovarian cancer (Acute) Osteoporosis (Acute) Port-A-Cath in place (Acute) Surgical History Surgical History H/O: hysterectomy (Acute) History of carpal tunnel release of both wrists (Acute) History of intestinal surgery (Acute) Family History Family History Other No history of cancer Social History Social History Substance History: No History of Abuse Second Hand Smoke Exposure: No Smoking Status: Never smoker How Often Do You Have a Drink Containing Alcohol: Never Recent Travel in [place] within the Last 8 Weeks: No Recent Out of Country Travel within the Last 8 Weeks: No Immunization History Tetanus Immunization: <5 Years Medications and Allergies Allergies Allergy/AdvReac Type Severity Reaction Status Date / Time fire ant Allergy Mild Anaphylaxis Verified 10/30/18 12:14 Home Medications Medication Instructions Recorded Confirmed Type ascorbic acid (vitamin C) [Vitamin 250 mg PO DAILY 06/05/18 11/05/18 History C] [id number] 1 tab PO DAILY 06/05/18 11/05/18 History [[employer]] lorazepam [Ativan] 0.5 mg PO HS 10/08/18 11/05/18 History cholecalciferol (vitamin D3) 2,000 unit PO DAILY 10/24/18 11/05/18 History [Vitamin D3] vitamin B complex [B-Complex] 1 tab PO DAILY 10/24/18 11/05/18 History Active Medications: Active Medications Acetaminophen (Tylenol) 650 mg PO Q4H PRN PRN Reason: Temp > 100.4 Al Hydroxide/Mg Hydroxide (Milk Of Magnesia Liq) 30 ml PO Q12H PRN PRN Reason: Mild Constipation Bisacodyl (Dulcolax Supp) 10 mg RECTAL DAILY PRN PRN Reason: SEVERE CONSITIPATION Sodium Chloride (Ns Inj) 1,000 mls @ 100 mls/hr IV.CONT .Q10H LUCHO Lactulose (Lactulose Liq) 30 ml PO DAILY PRN PRN Reason: SEVERE CONSITIPATION Lorazepam (Ativan Inj) 1 mg IV.PUSH Q4H PRN PRN Reason: AGITATION/ANXIETY Morphine Sulfate (Morphine Inj) 2 mg IV.PUSH Q4H PRN PRN Reason: PAIN SCALE 6 TO 10 Ondansetron HCl (Zofran Inj) 4 mg IV.PUSH Q6H PRN PRN Reason: NAUSEA OR VOMITING Prochlorperazine Edisylate (Compazine Inj) 10 mg IV.PUSH Q6H PRN PRN Reason: NAUSEA/VOMITING Senna/Docusate Sodium (Viv-Colace) 1 tab PO BID LUCHO Sennosides (Senokot) 17.2 mg PO Q12H PRN PRN Reason: Moderate Constipation Sodium Chloride (Ns Flush) 2 ml IV.FLUSH PRN PRN PRN Reason: FLUSH AFTER USING IV ACCESS Sodium Chloride (Ns Flush) 2 ml IV.FLUSH BID LUCHO Sodium Chloride (Ns Flush) 2 ml IV.FLUSH PRN PRN PRN Reason: FLUSH AFTER USING IV ACCESS Physical Exam Vital signs: Vital Signs 11/25/18 21:05 11/25/18 21:28 Temperature 98.2 F Pulse Rate 94 H 89 Respiratory Rate 18 16 Blood Pressure 128/60 121/64 Pulse Oximetry 100 98 Intake & Output 11/25/18 11/25/18 11/26/18 06:59 18:59 06:59 Intake Total 1000 / 1000 Balance 1000 / 1000 Weight 49.895 kg Intake: IV 1000 / 1000 NS Inj 1,000 ML @ Wide Open IV. 1000 / 1000 SIG BOLUS ONE Rx#:[id number] Narrative: PE: GENERAL: Middle-aged white female in no acute distress. SKIN: Focused skin assessment warm and dry. HEENT: PERRLA, EOMI. No scleral icterus or conjunctival pallor. No lid lag or facial droop. CARDIOVASCULAR: Regular rate and rhythm. No obvious murmurs to auscultation. No chest tenderness to palpation. RESPIRATORY: No obvious rhonchi or wheezing. Clear to auscultation. Breath sounds equal bilaterally. GASTROINTESTINAL: Abdomen soft, non-tender, nondistended. BS normal. MUSCULOSKELETAL: Extremities without clubbing, cyanosis, or edema. No obvious deformities. NEUROLOGICAL: Awake, alert and oriented x4. No focal neurologic deficits. Moving both upper and lower extremities spontaneously. PSYCHIATRIC: Appropriate mood. Flat affect. Insight and judgment normal. Results Labs CBC & Chem 7: 11/25/18 22:20 11/25/18 22:20 Imaging Impressions Abdomen/Pelvis CT 11/25/18 21:49 CONCLUSION: 1. No bowel obstruction identified. There is some mural thickening of the distal colon that may indicate a mild colitis. 2. Loculated fluid collection near the previous surgical site in the rectum measuring up to 5.9 x 2.8 cm. This appears to be outside of bowel and does contain some air. Cannot exclude infection. Caprini VTE Risk Assessment Caprini VTE Risk Assessment: No/Low Risk (score <= 1) Caprini Risk Assessment Model: Point Value = 1 Point Value = 2 Point Value = 3 Point Value = 5 Age 41-60 Minor surgery BMI > 25 kg/m2 Swollen legs Varicose veins or History of unexplained or recurrent spontaneous Oral contraceptives or hormone replacement Sepsis (< 1 month) Serious lung disease, including pneumonia (< 1 month) Abnormal pulmonary function Acute myocardial infarction Congestive heart failure (< 1 month) History of inflammatory bowel disease Medical patient at bed rest Age 61-74 Arthroscopic surgery Major open surgery (> 45 min) Laparoscopic surgery (> 45 min) Malignancy Confined to bed (> 72 hours) Immobilizing plaster cast Central venous access Age >= 75 History of VTE Family history of VTE Factor V Leiden Prothrombin [id number] Lupus anticoagulant Anticardiolipin antibodies Elevated serum homocysteine Heparin-induced thrombocytopenia Other congenital or acquired thrombophilia Stroke (< 1 month) Elective arthroplasty Hip, pelvis, or leg fracture Acute spinal cord injury (< 1 month) Prophylaxis Regimen: Total Risk Factor Score Risk Level Prophylaxis Regimen 0-1 Low Early ambulation 2 Moderate Order ONE of the following: *Sequential Compression Device (SCD) *Heparin 5000 units SQ BID 3-4 Higher Order ONE of the following medications: *Heparin 5000 units SQ TID *Enoxaparin/Lovenox 40 mg SQ daily (WT < 150 kg, CrCl > 30 mL/min) *Enoxaparin/Lovenox 30 mg SQ daily (WT < 150 kg, CrCl > 10-29 mL/min) *Enoxaparin/Lovenox 30 mg SQ BID (WT < 150 kg, CrCl > 30 mL/min) AND/OR *Sequential Compression Device (SCD) 5 or more Highest Order ONE of the following medications: *Heparin 5000 units SQ TID (Preferred with Epidurals) *Enoxaparin/Lovenox 40 mg SQ daily (WT < 150 kg, CrCl > 30 mL/min) *Enoxaparin/Lovenox 30 mg SQ daily (WT < 150 kg, CrCl > 10-29 mL/min) *Enoxaparin/Lovenox 30 mg SQ BID (WT < 150 kg, CrCl > 30 mL/min) AND *Sequential Compression Device (SCD) Assessment and Plan (1) Ovarian ca: Code(s): C56.9 - Malignant neoplasm of unspecified ovary Status: Chronic (2) Colitis: Code(s): K52.9 - Noninfective gastroenteritis and colitis, unspecified Status: Acute (3) Intractable nausea and vomiting: Code(s): R11.2 - Nausea with vomiting, unspecified Status: Acute (4) Hypokalemia: Code(s): E87.6 - Hypokalemia Status: Acute (5) UTI (urinary tract infection): Code(s): N39.0 - Urinary tract infection, site not specified Status: Acute Plan A/P: 1. Colitis: c/o abdominal pain, nausea/vomiting, recent Sigmoid Resection 10/30, CT Abd/Pelvis w/ mild colitis, loculated fluid collection near surgical site, ER physician discussed w/ Dr. Hastings, findings consistent w/ normal post surgical changes, no surgical intervention. Will start Zosyn, IVF. 2. Intractable NV: s/p Zofran in ER w/ some improvement, continue w/ Zofran, add Compazine. Clear liquids, advance diet as tolerated. 3. Ovarian CA: Stage III, following w/ Dr. Fleming, recent sigmoid resection by Dr. Hastings and Dr. Fleming, outpatient follow up w/ [facility]. 4. UTI: U/a w/ UTI, IV Zosyn for colitis/UTI, monitor I/O, IVF, follow up urine cultures. 5. Hypokalemia: K+ 3.2, s/p replacement in ER, will repeat in am, additional replacement as needed. 6. DVT Prophylaxis: SCD/Teds 7. Social work for d/c planning as needed. 8. Case discussed w/ ER physician at length, labs/records/imaging reviewed by me. 9. Discussed w/ Case Management, pt meets Observation criteria at this time. _ (1) Ovarian ca Qualifiers: Laterality:
[2018-11-26] MEDS: Piperacil/Tazo 4.5 GM Premix 4.5 GM/100 ML BAG IV.SIG SCH ×4 (00:06→17:53)
[2018-11-26] MEDS: Sod Chloride 0.9% Inj 1,000 ML IV.CONT SCH ×3 (00:06→22:05)
[2018-11-26] MEDS: Senna/Docusate Sodium 8.6/50 MG Tablet PO SCH ×2 (09:13→22:15)
[2018-11-26 09:26] LABS: Baso % (Auto) 0.4 % (0.0-2.0); Eos # (Auto) 0.1 th/mm3 (0.0-0.4); Hematocrit 26.4 % (35.0-46.0); Hemoglobin 8.7 gm/dL (11.6-15.3); Lymph # (Auto) 1.1 th/mm3 (1.0-4.8); Lymph % (Auto) 19.7 % (9.0-44.0); Mean Corpuscular HGB Conc 33.1 % (32.0-36.0); Mean Corpuscular Hemoglobin 28.7 pg (27.0-34.0); Mean Corpuscular Volume 86.9 fL (80.0-100.0); Mean Platelet Volume 7.4 fL (7.0-11.0); Mono # (Auto) 0.3 th/mm3 (0.0-0.9); Neut # (Auto) 4.2 th/mm3 (1.8-7.7); Neut % (Auto) 72.9 % (16.0-70.0); Platelet Count 393 th/mm3 (150-450); Red Blood Count 3.04 mil/mm3 (4.00-5.30); White Blood Count 5.8 th/mm3 (4.0-11.0)
[2018-11-26 09:49] LABS: Albumin 2.6 g/dL (3.4-5.0); Anion Gap 8 meq/L (5-15); Aspartate Aminotransferase 12 U/L (15-37); Blood Urea Nitrogen 15 mg/dL (7-18); Calcium 8.3 mg/dL (8.5-10.1); Carbon Dioxide 26.5 meq/L (21.0-32.0); Chloride 108 meq/L (98-107); Glomerular Filtration Rate 89 mL/min (>89); Glucose,Random 96 mg/dL (74-106); Potassium 3.6 meq/L (3.5-5.1); Sodium 142 meq/L (136-145)
[2018-11-26 09:51] LABS: Alanine Aminotransferase 11 U/L (10-53)
[2018-11-26 09:53] LABS: Alkaline Phosphatase 64 U/L (45-117); Total Protein 6.4 g/dL (6.4-8.2)
--- NOTE | 2018-11-26 10:14 | P.PNCS ---
Subjective Interval history: emesis, 1 month postop sigmoid resection, sbr, harmony, tumor debulking no nausea currently Objective Result Diagrams: 11/26/18 08:38 11/26/18 08:38 Objective Remarks: Abdomen soft, nondistended, nontender Wounds healing nicely Assessment and Plan - Plan try clears consult dictated
--- NOTE | 2018-11-26 12:34 | MB ---
cc: Mary Hastings MD DATE: 11/26/2018 CHIEF COMPLAINT: Emesis. HISTORY OF PRESENT ILLNESS: The patient is an unfortunate 63-year-old lady who is about a month out from surgery for recurrent stage III ovarian cancer. At that surgery, I assisted Dr. Fleming, who did a resection of a tumor. I completed a sigmoid resection, as well as a small bowel resection. She is a very anxious patient, but she had been doing fairly well. She was discharged from the hospital approximately 2 weeks ago and, according to the , she has been eating fairly well. She had a steak dinner on Tuesday night. She had multiple bowel movements on Tuesday, then on Tuesday she felt like she was constipated, used a suppository and got a tiny amount of stool out, but still felt uncomfortable. Evaluation in the emergency department showed UA positive for urinary tract infection. CT scan of abdomen and pelvis showed no evidence of bowel obstruction or large stool burden. There was some questionable mural thickening of the distal colon which was consistent with her previous surgery, not a mild colitis. In addition, she had a very tiny fluid collection just next to her surgical site, which is not consistent with infection but with a recent surgery. This morning, she is comfortable. She has had no nausea or vomiting overnight, although she did get some antiemetics last night. She has not had any yet this morning. PHYSICAL EXAMINATION: NEUROLOGIC: Grossly intact. SKIN: Warm and dry. HEENT: Head is normocephalic, atraumatic. CARDIOVASCULAR: Regular rate. CHEST: Breathing is symmetric bilaterally and nonlabored. ABDOMEN: Soft, nondistended, nontender. The patient has nicely healing incisions. EXTREMITIES: Reveal no edema. LABORATORY DATA: shows a white count this morning of 5.8, hemoglobin 8.7, platelets of 393. Chemistry shows sodium 142, potassium of 3.6, chloride is 108, bicarbonate is 26.5, BUN is 15, creatinine 0.67 and glucose is 96. CT scan is as mentioned. IMPRESSION: Postop emesis without real evidence of ileus or bowel obstruction. PLAN: It is hard to know, but according to the , she did eat a very large meal on Tuesday night, so it is possible she just overate. We will start her on clears today and then hopefully she can go home tomorrow. Thank you very much for your kind referral. MD SARIKA Johnson/wayne , 10:13 AM , 10:23 AM
--- NOTE | 2018-11-26 14:21 | P.PNIM ---
Subjective Interval history: In bed appears tired and sleepy. Some nausea no vomiting. No fever or chills. No point abdominal pain. Flat affect. Physical Exam Vital signs: Vital Signs 11/25/18 21:05 11/25/18 21:28 11/26/18 00:05 Temperature 98.2 F Pulse Rate 94 H 89 91 H Respiratory Rate 18 16 16 Blood Pressure 128/60 121/64 125/66 Pulse Oximetry 100 98 99 11/26/18 01:44 11/26/18 04:00 11/26/18 05:27 Temperature 99.0 F 98.8 F Pulse Rate 91 H 92 H Respiratory Rate 16 16 Blood Pressure 108/53 L 110/56 L 118/60 Pulse Oximetry 98 96 11/26/18 07:25 11/26/18 12:00 Temperature 98.8 F 98.7 F Pulse Rate 90 87 Respiratory Rate 16 18 Blood Pressure 121/62 122/60 Pulse Oximetry 96 97 Intake & Output 11/25/18 11/26/18 11/26/18 18:59 06:59 18:59 Intake Total 1440 / 1440 1100 / 1100 Balance 1440 / 1440 1100 / 1100 Weight 49.895 kg Intake: IV 1200 / 1200 1100 / 1100 NS Inj 1,000 ML @ 100 mls/hr IV 1000 / 1000 .CONT .Q10H LUCHO Rx#:[id number] Zosyn 4.5 GM Premix 4.5 gm In 200 / 200 100 / 100 100 ml @ 200 mls/hr IV.SIG Q6H LUCHO Rx#:[id number] NS Inj 1,000 ML @ Wide Open IV. 1000 / 1000 SIG BOLUS ONE Rx#:[id number] Oral 240 / 240 Other: # Voids 0 Date of Last Bowel Movement 11/25/18 11/25/18 Weight On Admission 49.895 kg Narrative: PE: GENERAL: Middle-aged female, in no acute distress. CARDIOVASCULAR: Regular rate and rhythm. No obvious murmurs to auscultation. No chest tenderness to palpation. RESPIRATORY: No obvious rhonchi or wheezing. Clear to auscultation. Breath sounds equal bilaterally. GASTROINTESTINAL: Abdomen soft, non-tender, nondistended. BS normal. MUSCULOSKELETAL: Extremities without clubbing, cyanosis, or edema. No obvious deformities. NEUROLOGICAL: Awake, alert and oriented x4. No focal neurologic deficits. Moving both upper and lower extremities spontaneously. PSYCHIATRIC: Appropriate mood. Flat affect. Insight and judgment normal. Results Labs CBC & Chem 7: 11/26/18 08:38 11/26/18 08:38 Labs: Microbiology 11/25/18 23:30 Blood - Peripheral Aerobic Blood Culture - Preliminary No growth in 1 day 11/25/18 23:30 Blood - Peripheral Anaerobic Blood Culture - Preliminary No growth in 1 day 11/25/18 23:20 Blood - Peripheral Aerobic Blood Culture - Preliminary No growth in 1 day 11/25/18 23:20 Blood - Peripheral Anaerobic Blood Culture - Preliminary No growth in 1 day Imaging Imaging: Impressions Abdomen/Pelvis CT 11/25/18 21:49 CONCLUSION: 1. No bowel obstruction identified. There is some mural thickening of the distal colon that may indicate a mild colitis. 2. Loculated fluid collection near the previous surgical site in the rectum measuring up to 5.9 x 2.8 cm. This appears to be outside of bowel and does contain some air. Cannot exclude infection. Assessment and Plan (1) Ovarian ca: Code(s): C56.9 - Malignant neoplasm of unspecified ovary Status: Chronic (2) Colitis: Code(s): K52.9 - Noninfective gastroenteritis and colitis, unspecified Status: Acute (3) Intractable nausea and vomiting: Code(s): R11.2 - Nausea with vomiting, unspecified Status: Acute (4) Hypokalemia: Code(s): E87.6 - Hypokalemia Status: Acute (5) UTI (urinary tract infection): Code(s): N39.0 - Urinary tract infection, site not specified Status: Acute Plan Colitis: c/o abdominal pain, nausea/vomiting, recent Sigmoid Resection 10/30/18 , CT Abd/Pelvis w/ mild colitis, loculated fluid collection near surgical site, ER physician discussed w/ Dr. Hastings, findings consistent w/ normal post surgical changes, no surgical intervention. Continue Zosyn, IVF. Intractable NV: improving. S/p Zofran in ER w/ some improvement, continue w/ Zofran, add Compazine. Advance diet as tolerated. Ovarian CA: Stage III, following w/ Dr. Fleming, recent sigmoid resection by Dr. Hastings and Dr. Fleming, outpatient follow up w/ [facility]Onc. UTI: U/a w/ UTI, IV Zosyn for colitis/UTI, monitor I/O, IVF, follow up urine cultures. Hypokalemia: K+ 3.2, s/p replacement in ER, will repeat in am, additional replacement as needed. DVT Prophylaxis: SCD/Teds Discussed with the patient, nurse. Progress Note: Quality VTE Deep Vein Thrombosis/Pulmonary Embolism Present on Admission: No _ (1) Ovarian ca Qualifiers: Laterality:
[2018-11-27] MEDS: Piperacil/Tazo 4.5 GM Premix 4.5 GM/100 ML BAG IV.SIG SCH ×3 (00:33→13:01)
[2018-11-27] MEDS: Sod Chloride 0.9% Inj 1,000 ML IV.CONT SCH (06:06)
[2018-11-27 08:25] VITALS: RESP 16
[2018-11-27] MEDS: Senna/Docusate Sodium 8.6/50 MG Tablet PO SCH (08:34)
[2018-11-27 12:11] VITALS: BP 113/65; PULSE 87; TEMP 98.2; O2SAT 100
--- NOTE | 2018-11-27 14:05 | P.PNCS ---
Subjective Interval history: Emesis resolved, tolerating clears Objective Result Diagrams: 11/26/18 08:38 11/26/18 08:38 Objective Remarks: Abdomen soft, nondistended, nontender Wounds healing nicely Assessment and Plan - Plan suspect this was caused by overeating, no further emesis currently OK to d/c home Followup with me 3 weeks
--- NOTE | 2018-11-27 15:26 | P.DS ---
DS: Providers Date of admission: 11/25/18 23:37 Primary care physician: Rhona Stewart Consults: 11/25/18 23:37 Consult to Colorectal Surgery Routine Consulting Provider: Mary Hastings Preferred Clinical Laboratory Manager:: Mary Hastings Patient known to:: Mary Hastings Reason for Consultation: Post op pain CONSULT FOR AM Notified:: Service Spoke with:: Delvin Date Notified:: 11/25/18 Time Notified:: 23:46 Ordering Provider: [facility] Only Consult Order Routine Consulting Provider: [place] [employer],Insurance Brief History from admission: This is a 63-year-old female with a PMH of SBO and Stage 3 Ovarian CA s/p Sigmoid Resection and Tumor Debulking 10/30/[address] Hastings and Dr. Fleming who presented to the ER w/ c/o abdominal pain in addition to nausea/vomiting. States she had been doing well since discharge on 11/08/18 until this morning when she developed acute onset abdominal pain. Pain is generalized, constant, 10/10, non-radiating. Notes small BM today but was concerned for recurrent bowel obstruction, using OTC Dulcolax and suppository w / no relief. On arrival, BP 128/60, HR 94, O2 sat 100% on RA, Afebrile. CBC at baseline. K+ 3.2. UA positive for UTI. CT Abdomen/Pelvis with no bowel obstruction, small mural thickening of distal colon possibly mild colitis, loculated fluid collection near surgical site. ER physician discussed with Dr. Hastings, findings normal postsurgical changes, no surgical intervention needed at this time. DS: Diagnosis Discharge Diagnosis (1) Ovarian ca: Status: Chronic (2) Colitis: Status: Acute (3) Intractable nausea and vomiting: Status: Acute (4) Hypokalemia: Status: Acute (5) UTI (urinary tract infection): Status: Acute DS: Summary Very pleasant 63-year-old female with past medical history of small bowel obstruction stage III ovarian cancer status post sigmoid resection and tumor debulking on 10/30/[address] Liu steel and Dr. Hastings was discharged on . Patient presented with acute abdominal pain unable to keep p.o. Also patient with hypokalemia electrolytes abnormalities was replaced. CT abdomen pelvis showed mild colitis loculated fluid collection near surgical site. Dr. Hastings her surgeon was consulted and the findings are consistent with normal postsurgical changes. Patient with intractable nausea vomiting on admission and not able to keep p.o. intake. Patient was placed on clear liquid diet and was not tolerating well initially. Received antiemetics, IV fluids electrolytes were replenished patient is also with anemia. Patient however improved, cleared by surgeon for discharge. Tolerates clear liquid diet and diet is advanced. Patient tolerates diet. Improved and was discharged home in stable condition to follow-up with PCP and consultants as outpatient. Colitis: c/o abdominal pain, nausea/vomiting, recent Sigmoid Resection 10/30/18 , CT Abd/Pelvis w/ mild colitis, loculated fluid collection near surgical site, ER physician discussed w/ Dr. Hastings, findings consistent w/ normal post surgical changes, no surgical intervention. Continue Zosyn, IVF. Intractable NV: improving. S/p Zofran in ER w/ some improvement, continue w/ Zofran, add Compazine. Advance diet as tolerated. Ovarian CA: Stage III, following w/ Dr. Fleming, recent sigmoid resection by Dr. Hastings and Dr. Fleming, outpatient follow up w/ [employer]-Onc. UTI: U/a w/ UTI, IV Zosyn for colitis/UTI, monitor I/O, IVF, follow up urine cultures. Hypokalemia: K+ 3.2, s/p replacement in ER, will repeat in am, additional replacement as needed. DVT Prophylaxis: SCD/Teds Discussed with the patient, nurse, family very supportive. Time Spent with Patient Total time spent providing and/or coordinating discharge services: > 30 min Quality: VTE Deep Vein Thrombosis/Pulmonary Embolism Present on Admission: No Exam Narrative Exam Narrative: GENERAL: Middle-aged female, in no acute distress. Pale. CARDIOVASCULAR: Regular rate and rhythm. No obvious murmurs to auscultation. No chest tenderness to palpation. RESPIRATORY: No obvious rhonchi or wheezing. Clear to auscultation. Breath sounds equal bilaterally. GASTROINTESTINAL: Abdomen soft, non-tender, nondistended. BS normal. MUSCULOSKELETAL: Extremities without clubbing, cyanosis, or edema. No obvious deformities. NEUROLOGICAL: Awake, alert and oriented x4. No focal neurologic deficits. Moving both upper and lower extremities spontaneously. PSYCHIATRIC: Appropriate mood. Insight and judgment normal. Results Labs on day of discharge: Preliminary micro results at discharge 11/25/18 23:30 Aerobic Blood Culture - Preliminary Blood - Peripheral No growth in 2 days Anaerobic Blood Culture - Preliminary No growth in 2 days 11/25/18 23:20 Aerobic Blood Culture - Preliminary Blood - Peripheral No growth in 2 days Anaerobic Blood Culture - Preliminary No growth in 2 days Impressions ITS Impressions Abdomen/Pelvis CT 11/25/18 21:49 CONCLUSION: 1. No bowel obstruction identified. There is some mural thickening of the distal colon that may indicate a mild colitis. 2. Loculated fluid collection near the previous surgical site in the rectum measuring up to 5.9 x 2.8 cm. This appears to be outside of bowel and does contain some air. Cannot exclude infection. Discharge Plan Discharge Disposition Patient Disposition: 01 Discharge Home Discharge Condition Condition: Stable Discharge Order Discharge Orders: Discharge Order (Routine); Ordered 11/27/18 Ordered By: Suzanne Christian Discharge Details Anticipated Discharge Date: 11/27/18 Physicians Team Primary Care Provider: Rhona Stewart Attending Provider: Suzanne Christian Other Providers: [facility],Insurance ; Mary Hastings Rxs /Orders / Referrals /Forms Prescriptions: Continue ascorbic acid (vitamin C) [Vitamin C] 500 mg Tablet 250 mg PO DAILY RF: 0 [id number] [[employer]] 18-400-80 mg-mcg-mcg Tablet 1 tab PO DAILY RF: 0 lorazepam [Ativan] 0.5 mg Tablet 0.5 mg PO HS RF: 0 vitamin B complex [B-Complex] Tablet 1 tab PO DAILY RF: 0 cholecalciferol (vitamin D3) [Vitamin D3] 2,000 unit Capsule 2,000 unit PO DAILY RF: 0 polyethylene glycol 3350 [Miralax] 17 gram Powder In Packet 17 g PO DAILY 30 Days RF: 0 megestrol 400 mg/10 mL (10 mL) Suspension 400 mg PO DAILY 30 Days Qty: 300 RF: 0 Referrals: Mary Hastings MD [Physician] - See Instructions ( Please call the physician's office to book the appointment to be seen within [1 week].) Rhona Stewart M.D. [Primary Care Provider] - See Instructions ( Please call the physician's office to book the appointment to be seen within [2-3 days] .) Discharge Instructions Patient Printed Instructions: Ulcerative Colitis (ED), Acute Nausea and Vomiting (ED) Additional Instructions: Your Health Problems: Goals to Promote Your Health: * To prevent worsening of your condition * To maintain your health at the optimal level Directions to Meet Your Goals: * Take your medications as prescribed * Follow your dietary instruction * Follow activity as directed * Keep your appointments as scheduled * Take your immunizations and boosters as scheduled * If your symptoms worsen call your PCP * If no PCP go to Urgent Care or Emergency Room Smoking is dangerous to your health. Avoid second hand smoke. You may reach the 24-hour crisis hotline for domestic abuse at . Post Discharge Care Plan Care Plan Goals: Your Health Problems: Goals to Promote Your Health: * To prevent worsening of your condition * To maintain your health at the optimal level Directions to Meet Your Goals: * Take your medications as prescribed * Follow your dietary instruction * Follow activity as directed * Keep your appointments as scheduled * Take your immunizations and boosters as scheduled * If your symptoms worsen call your PCP * If no PCP go to Urgent Care or Emergency Room Smoking is dangerous to your health. Avoid second hand smoke. You may reach the DuraFizz-hour ApoVaxline for domestic abuse at . Status ED Status: Left Department
== END 2018-11-27 15:43 | disposition home or self-care (01) ==
LOC: NEDA 21:01 → NEPE 21:01 → NEPHCDU 11-26 01:40
PROVIDERS: ADMIT Hospitalist; ATTEND Hospitalist
DX: D64.9 Anemia, unspecified; K52.9 Noninfective gastroenteritis and colitis, unspecified; K21.9 Gastro-esophageal reflux disease without esophagitis; C56.9 Malignant neoplasm of unspecified ovary; M81.0 Age-related osteoporosis without current pathological fracture; E87.6 Hypokalemia; N39.0 Urinary tract infection, site not specified; F41.9 Anxiety disorder, unspecified
CPT/HCPCS: 74176; 80053; 81001; 83690; 83735; 85025; 87040; 87086; 90761; 90774; 90784; 96361; 96374; 96375; 96376; 99285; C8952; G0378; J2060; J2270; J2405; J2543; J7030